=== PATIENT | female | born 1950 | race Caucasian/White ===

== ENCOUNTER 2018-02-05 12:41 | Inpatient (IN) | payer OTHER, BC ==
[2018-02-05] MEDS ORDERED: FENTANYL CITR 100 MCG/2 ML ONE (14:01)
[2018-02-05] MEDS ORDERED: ONDANSETRON 4 MG/2 ML VIAL ONE (14:01)
--- NOTE | 2018-02-05 14:05 | EKG ---
Test Date: 2018-02-05 Test Time: 13:01:05 Coil Former: BECKI MEASUREMENT RESULTS: Intervals: Rate: 129 [place]: QRSD: 84 QT: 268 QTc: 392 [place]: P: [place]: QRS: 94 T: 51 INTERPRETIVE STATEMENTS: Atrial fibrillation with rapid ventricular response with premature ventricular or aberrantly conducted complexes Rightward axis Low voltage QRS Cannot rule out Anterior infarct, age undetermined Abnormal ECG Compared to ECG 06/27/2011 17:02:08 Ventricular premature complex(es) now present Myocardial infarct finding now present Sinus rhythm no longer present Electronically Signed On 02-05-18 14:04:50 CDT by Rey Le
[2018-02-05] MEDS ORDERED: Ringers Lactate 1,000 ML IV ONE (14:46)
[2018-02-05 14:56] LABS: Potassium 4.3 mEq/L (3.6-5.0)
[2018-02-05 15:02] LABS: Albumin 3.8 g/dL (3.2-5.5); Bilirubin Direct 0.2 mg/dL (0-0.2); Bilirubin Total 0.5 mg/dL (0.3-1.2); Magnesium 2.1 mg/dL (1.8-2.5); Protein, Total 7.5 g/dL (6.0-8.3)
[2018-02-05 15:04] LABS: CKMB Creatine Kinase MB 1.3 ng/ml (0.3-4.0)
[2018-02-05 15:08] LABS: Protime INR 1.03
--- NOTE | 2018-02-05 15:25 | RAD REPORT ---
EXAM DESCRIPTION: Pat Single View02/05/2018 2:23 pm CLINICAL HISTORY: Chest pain COMPARISON: 2010 FINDINGS: The lungs appear clear of acute infiltrate. The heart is borderline enlarged IMPRESSION: No acute abnormalities displayed
[2018-02-05 15:35] LABS: Absolute Lymphocytes (CBC) 0.8 K/uL (0.7-4.9); Absolute Monocytes 0.6 K/uL (0.1-1.3); Absolute Neutrophil 10.1 K/uL (1.8-8.0); Basophils % 0.5 % (0-1.3); Eosinophils % 0.3 % (0-4.4); Hematocrit 45.2 % (36.0-45.0); Lymphocytes % 7.1 % (15.3-44.8); MCH 30.3 pg (27.0-35.0); MCV 90.4 fL (80-100); MPV 9.1 fL (7.6-11.3); Monocytes % 5.4 % (3.3-12.3)
--- NOTE | 2018-02-05 16:11 | ER ---
Nurse's Notes [facility] Name: Qi Morse Age: 67 yrs Sex: Female : 1950 Arrival Date: 02/05/2018 Time: 12:42 Bed 16 Private MD: Andriy Tapia Diagnosis: Other chest pain;Other abdominal pain Presentation: 02/05 12:55 Presenting complaint: Patient states: nausea, left shoulder pain, and epigastric pain aa5 that woke pt up around 3 am today. Pt also reports feeling tired. Transition of care: patient was not received from another setting of care. Onset of symptoms was February 05, 2018. Risk Assessment: Do you want to hurt yourself or someone else? Patient reports no desire to harm self or others. Initial Sepsis Screen: Does the patient meet any 2 criteria? No. Patient's initial sepsis screen is negative. Does the patient have a suspected source of infection? No. Patient's initial sepsis screen is negative. Care prior to arrival: None. 12:55 Method Of Arrival: Ambulatory aa5 12:55 Acuity: DIPTI 3 aa5 Historical: - Allergies: 12:57 Codeine (Upset stomach); aa5 - Home Meds: 12:57 levothyroxine oral [Active]; aa5 - PMHx: 12:57 Pancreatitis; aa5 - PSHx: 12:57 Cholecystectomy; Partial thyroidectomy; right hip replacement; aa5 - Immunization history:: Adult Immunizations up to date. - Social history:: Smoking status: Patient/guardian denies using tobacco. - Ebola Screening: : No symptoms or risks identified at this time. Screenin:00 Abuse screen: Denies threats or abuse. Denies injuries from another. Nutritional aj screening: No deficits noted. Tuberculosis screening: No symptoms or risk factors identified. Fall Risk None identified. Assessment: 13:00 General: Appears in no apparent distress. uncomfortable, Behavior is calm, cooperative, aj appropriate for age. Pain: Complains of pain in abdomen. Neuro: Level of Consciousness is awake, alert, obeys commands, Oriented to person, place, time, situation, Appropriate for age. Respiratory: Airway is patent Respiratory effort is even, unlabored, Respiratory pattern is regular, symmetrical. GI: Reports lower abdominal pain, upper abdominal pain. Derm: Skin is intact, is healthy with good turgor, Skin is pink, warm \T\ dry. normal. Vital Signs: 12:58 BP 144 / 96; Pulse 114; Resp 18 S; Temp 98.9(O); Pulse Ox 94% on R/A; Weight 149.69 kg aa5 (R); Height 5 ft. 9 in. (175.26 cm) (R); Pain 4/10; 13:00 BP 134 / 72; Pulse 93; Resp 19; Pulse Ox 99% on R/A; aj 14:20 BP 129 / 71; Pulse 89; Resp 19; Pulse Ox 96% on R/A; dh3 12:58 Body Mass Index 48.73 (149.69 kg, 175.26 cm) aa5 ED Course: 12:42 Patient arrived in ED. sb2 12:43 Andriy Tapia MD is Private Physician. sb2 12:56 Triage completed. aa5 12:56 Arm band placed on. aa5 13:00 EKG completed in triage. Results shown to MD. aa5 13:00 No provider procedures requiring assistance completed. Patient admitted, IV remains in aj place. intact. 13:09 Bo Clemens PA is PHCP. jmm 13:09 Iker Matt MD is Attending Physician. jmm 13:16 Hannah Denis, RN is Primary Nurse. aj 14:17 Radiology exam delayed due to lab results not completed at this time. (BUN/Creatinine). jj2 14:19 Missed attempt(s): 22 gauge in left antecubital area. Bleeding controlled, band aid dh3 applied, catheter tip intact. 14:21 X-ray completed. Portable x-ray completed in exam room. Patient tolerated procedure jb2 well. 14:21 XRAY Chest (1 view) In Process Unspecified. EDMS 14:45 Radiology exam delayed due to lab results not completed at this time. (BUN/Creatinine). jj2 14:45 Inserted saline lock: 22 gauge in left antecubital area, using aseptic technique. Blood aj collected. 15:29 EKG done, by neurology technician. reviewed by Bo CHASE Repeat EKG. at1 16:10 Tara Carlos MD is Hospitalizing Provider. jmm 17:55 Patient has correct armband on for positive identification. Report given to Rachel. aj Administered Medications: 14:41 Drug: fentaNYL (PF) 50 mcg Route: IVP; Site: left antecubital; aj 14:42 Drug: Zofran 4 mg Route: IVP; Site: left antecubital; aj 14:47 Drug: Lactated Ringers Solution 1000 ml Route: IV; Rate: 1 bolus; Site: left aj antecubital; Outcome: 16:10 Decision to Hospitalize by Provider. moose 17:58 Admitted to Med/surg accompanied by yessi, via wheelchair, Report called to Rachel voss 17:58 Condition: good 17:58 Instructed on the need for admit. 18:24 Patient left the ED. ss Signatures: Dispatcher [employer] Hannah Obando, RN RN Bo Valencia PA PA jmm Buechter, Jesse jb2 Jaramillo, Justin jj2 Calderon, Audri, RN RN aa5 Saima Maki RN RN Hannah benoit, b[place] cutter EKG Tat1 Safia Paul 3 Nevin Valente sb2
--- NOTE | 2018-02-05 16:11 | EDPHYS ---
Physician Documentation [facility] Name: Qi Morse Age: 67 yrs Sex: Female : 1950 Arrival Date: 02/05/2018 Time: 12:42 Bed 16 Private MD: Andriy Tapia ED Physician Iker Matt HPI: 02/05 13:54 This 67 yrs old Female presents to ER via Ambulatory with complaints of jmm Doesn't Feel Right, Pain All Over. 13:54 The patient presents with abdominal pain in the epigastric area. Onset: The jmm symptoms/episode began/occurred gradually, this am. The symptoms radiate to the left shoulder. Associated signs and symptoms: Pertinent positives: weakness. This is a 67 year old female with a hx of pancreatitis that presents to the ED with epigastric abdominal pain worsening this morning at approx 3 am. Also complains of generalized weakness and left shoulder pain for approx 1 week. . Historical: - Allergies: 12:57 Codeine (Upset stomach); aa5 - Home Meds: 12:57 levothyroxine oral [Active]; aa5 - PMHx: 12:57 Pancreatitis; aa5 - PSHx: 12:57 Cholecystectomy; Partial thyroidectomy; right hip replacement; aa5 - Immunization history:: Adult Immunizations up to date. - Social history:: Smoking status: Patient/guardian denies using tobacco. - Ebola Screening: : No symptoms or risks identified at this time. ROS: 13:54 ENT: Negative for injury, pain, and discharge, Neck: Negative for injury, pain, and jmm swelling. 13:54 Respiratory: Negative for shortness of breath, cough, wheezing, and pleuritic chest pain. 13:54 Back: Negative for injury and pain, : Negative for injury, bleeding, discharge, and swelling, Skin: Negative for injury, rash, and discoloration, Neuro: Negative for headache, weakness, numbness, tingling, and seizure. 13:54 Constitutional: Positive for malaise. 13:54 Cardiovascular: Positive for 13:54 Abdomen/GI: Positive for abdominal pain, nausea. 13:54 Neuro: Positive for weakness. 13:54 All other systems are negative. Exam: 13:54 Head/Face: atraumatic. Chest/axilla: Normal chest wall appearance and motion. jmm Nontender with no deformity. No lesions are appreciated. Cardiovascular: Regular rate and rhythm. No gallops, murmurs, or rubs. Full/Equal distal pulses. Respiratory: Lungs have equal breath sounds bilaterally, clear to auscultation. No rales, rhonchi or wheezes noted. No increased work of breathing, no retractions or nasal flaring. 13:54 Constitutional: The patient appears in no acute distress, alert, awake. 13:54 Abdomen/GI: Inspection: obese Bowel sounds: normal, Palpation: abdomen is soft and non-tender, mild abdominal tenderness, in the umbilical area, right upper quadrant and left upper quadrant. 13:54 Musculoskeletal/extremity: ROM: intact in all extremities. 13:54 Skin: Appearance: Color: normal in color. 13:54 Neuro: Orientation: is normal, Mentation: is normal, Memory: is normal. 13:54 Psych: Behavior/mood is pleasant, cooperative. Vital Signs: 12:58 BP 144 / 96; Pulse 114; Resp 18 S; Temp 98.9(O); Pulse Ox 94% on R/A; Weight 149.69 kg aa5 (R); Height 5 ft. 9 in. (175.26 cm) (R); Pain 4/10; 13:00 BP 134 / 72; Pulse 93; Resp 19; Pulse Ox 99% on R/A; aj 14:20 BP 129 / 71; Pulse 89; Resp 19; Pulse Ox 96% on R/A; dh3 12:58 Body Mass Index 48.73 (149.69 kg, 175.26 cm) aa5 MDM: 13:51 Patient medically screened. [facility] 13:54 Data reviewed: vital signs, nurses notes. [facility] 16:09 Data reviewed: lab test result(s), EKG, radiologic studies, plain films. ED course: I moose discussed the patient with RJ Carey whom accepted the patient to Dr. Carlos's service. . 17:09 Data reviewed: radiologic studies, CT scan. Counseling: I had a detailed discussion moose with the patient and/or guardian regarding: the historical points, exam findings, and any diagnostic results supporting the discharge/admit diagnosis, lab results, radiology results, the need for further work-up and treatment in the hospital. ED course: I discussed the patient with RJ Carey whom accepted to the patient's to Dr. Carlos's service. . 02/05 13:52 Order name: Basic Metabolic Panel; Complete Time: 15:07 [facility] 02/05 13:52 Order name: BNP; Complete Time: 15: [facility] 02/05 13:52 Order name: CBC with Diff; Complete Time: 15:51 [facility] 02/05 13:52 Order name: Ckmb; Complete Time: 15: [facility] 02/05 13:52 Order name: CPK; Complete Time: 15:07 [facility] 02/05 13:52 Order name: LFT's; Complete Time: 15: [facility] 02/05 13:52 Order name: Magnesium; Complete Time: 15: [facility] 02/05 13:52 Order name: PT-INR; Complete Time: 15:21 [facility] 02/05 13:52 Order name: Ptt, Activated; Complete Time: 15:21 [facility] 02/05 13:52 Order name: Troponin (emerg Dept Use Only); Complete Time: 15: [facility] 02/05 13:52 Order name: Lipase; Complete Time: 15: [facility] 02/05 16:23 Order name: Basic Metabolic Panel [facility] 02/05 16:23 Order name: Basic Metabolic Panel [facility] 02/05 16:23 Order name: CBC with Automated Diff [facility] 02/05 13:52 Order name: XRAY Chest (1 view); Complete Time: 15:51 [facility] 02/05 13:52 Order name: EKG; Complete Time: 13:53 [facility] 02/05 13:52 Order name: CT Abd/Pelvis - W/Contrast [facility] 02/05 15:19 Order name: Chest For PE Angio CT [facility] 02/05 15:28 Order name: EKG Electrocardiogram [facility] 02/05 16:23 Order name: EKG Electrocardiogram [facility] 02/05 16:23 Order name: EKG Electrocardiogram [facility] 02/05 16:23 Order name: CBC with Automated Diff [facility] 02/05 16:23 Order name: Troponin I [facility] 02/05 16:23 Order name: Troponin I [facility] 02/05 16:23 Order name: Troponin I [facility] 02/05 16:36 Order name: CT; Complete Time: 16:41 [facility] 02/05 16:41 Order name: CT; Complete Time: 16:42 [facility] 02/05 13:52 Order name: Cardiac monitoring [facility] 02/05 13:52 Order name: EKG - Nurse/Tech [facility] 02/05 13:52 Order name: IV Saline Lock [facility] 02/05 13:52 Order name: Labs collected and sent [facility] 02/05 13:52 Order name: O2 Per Protocol [facility] 02/05 13:52 Order name: O2 Sat Monitoring [facility] 02/05 13:52 Order name: Urine Dipstick-Ancillary (obtain specimen) [facility] 02/05 15:13 Order name: EKG - Nurse/Tech [facility] 02/05 16:23 Order name: EKG Electrocardiogram [facility] 02/05 16:23 Order name: EKG Electrocardiogram [facility] Administered Medications: 14:41 Drug: fentaNYL (PF) 50 mcg Route: IVP; Site: left antecubital; aj 14:42 Drug: Zofran 4 mg Route: IVP; Site: left antecubital; aj 14:47 Drug: Lactated Ringers Solution 1000 ml Route: IV; Rate: 1 bolus; Site: left aj antecubital; Disposition: 02/05/18 16:10 Hospitalization ordered by Tara Carlos for Observation. Preliminary diagnosis are Other chest pain, Other abdominal pain. - Bed requested for Telemetry/MedSurg (observation). - Status is Observation. ss - Condition is Stable. - Problem is new. - Symptoms have improved. UTI on Admission? No Addendum: 02/09/2018 07:05 Co-signature as Attending Physician, Iker Matt MD I agree with the assessment and k dr plan of care. Signatures: Dispatcher [employer] [facility] Hannah Denis RN RN aj Rittger, Kevin, MD MD kdr Mickail, Joel, PA PA Kylah Arechiga RN RN aa5 Saima Maki RN RN ss Idalmis Maradiaga RN RN df Corrections: (The following items were deleted from the chart) 02/05 17:08 16:10 Hospitalization Ordered by Tara Carlos MD for Observation. Preliminary df diagnosis is Other chest pain; Other abdominal pain. Bed requested for Telemetry/MedSurg (observation). Status is Observation. Condition is Stable. Problem is new. Symptoms have improved. UTI on Admission? No. [facility] 18:24 17:08 02/05/2018 16:10 Hospitalization Ordered by Tara Carlos MD for Observation. ss Preliminary diagnosis is Other chest pain; Other abdominal pain. Bed requested for Telemetry/MedSurg (observation). Status is Observation. Condition is Stable. Problem is new. Symptoms have improved. UTI on Admission? No. df
[2018-02-05] MEDS ORDERED: ONDANSETRON 4 MG/2 ML VIAL IV PRN (16:21)
--- NOTE | 2018-02-05 16:35 | RAD REPORT ---
EXAM DESCRIPTION: CT - Chest For Pe Angio - 02/05/2018 4:25 pm CLINICAL HISTORY: Chest pain. CHEST PAIN COMPARISON: CTANGIO CHEST FOR PE dated 06/25/2008 TECHNIQUE: CT angiogram of the pulmonary arteries was performed with MIP. All CT scans are performed using dose optimization technique as appropriate and may include automated exposure control or mA/KV adjustment according to patient size. FINDINGS: No evidence of pulmonary thromboembolism. No acute aortic finding demonstrated. Mild cardiomegaly is seen. Linear atelectasis is present in the right lung base. No focal infiltrate is seen. No significant pericardial or pleural fluid. No concerning bony finding. Mildly prominent right-sided pericardial lymph nodes are seen the largest measuring 16 mm. IMPRESSION: No evidence of pulmonary thromboembolism. Linear atelectasis is seen in the right lung base.
--- NOTE | 2018-02-05 16:41 | RAD REPORT ---
EXAM DESCRIPTION: CTAbdomen Pelvis W Contrast - 02/05/2018 4:25 pm CLINICAL HISTORY: Abdominal pain. abdominal pain, IV only COMPARISON: CT ABD PELVIS W CONTRAST dated 09/02/2008 TECHNIQUE: Biphasic CT imaging of the abdomen and pelvis was performed with 100 ml non-ionic IV cont rast. All CT scans are performed using dose optimization technique as appropriate and may include automated exposure control or mA/KV adjustment according to patient size. FINDINGS: Linear subsegmental atelectasis is present in the right lung base.Mildly prominent lymph n odes seen in the pericardial space, largest measuring 15 mm. Small hiatal hernia noted. Pneumobilia is seen in the liver with cholecystectomy clips present. The spleen, adrenal glands and k idneys are within normal limits. Slightly edematous appearance to the pancreatic head is present. No bowel obstruction, free air, free fluid or abscess. Focal fat containing ventral hernias are seen. The appendix is not identified as a discrete structure, however, no secondary findings of appendicit is are identified. 4 cm left adnexal cyst is noted. No evidence of significant lymphadenopathy. Mild aortic atherosclerosis. Right hip arthroplasty present. IMPRESSION: Subtle fullness in the pancreatic head region could indicate in early pancreatitis. Advi se correlation with amylase/ lipase levels. Cholecystectomy with moderate pneumobilia. 4 cm left adnexal cyst, probably related to the left ovary. Followup nonemergent pelvic sonography ma y be considered in 4-6 weeks.
[2018-02-05] MEDS ORDERED: NA CHLORIDE 0.9% 1,000 ML ONE (18:47)
[2018-02-05] MEDS: ACETAMINOPHEN 500 MG TAB PO PRN (18:53)
[2018-02-05] MEDS: NA CHLORIDE 0.9% 1,000 ML IV SCH ×2 (18:58→21:45)
[2018-02-05] MEDS ORDERED: DIAZEPAM 10 MG/2 ML INJ SYRINGE IV ONE (19:00)
[2018-02-05] MEDS ORDERED: ENOXAPARIN 40 MG/0.4 ML SQ SCH (20:00)
[2018-02-05] MEDS ORDERED: ACETAMINOPHEN 500 MG TAB PO ONE (21:38)
--- NOTE | 2018-02-05 21:56 | P.HP ---
Certification for Inpatient Patient admitted to: Observation With expected LOS: <2 Midnights Patient will require the following post-hospital care: None Practitioner: I am a practitioner with admitting privileges, knowledge of patient current condition, hospital course, and medical plan of care. Services: Services provided to patient in accordance with Admission requirements found in Title 42 Section 412.3 of the Code of Federal Regulations Patient History Date of Service: 02/05/18 Primary Care Provider: Willie Reason for admission: abdominal pain, mild pancreatitis History of Present Illness: Pt began having abdominal spasms on Thursday. Today she awoke with malaise, fatigue, and chills. Tried to make it through work and had to come to ED for severity of upper abdominal pain, chills, and nausea Allergies codeine Allergy (Verified 02/05/18 17:02) Hiv Home medications list reviewed: Yes - Past Medical/Surgical History Has patient received pneumonia vaccine in the past: Yes Diabetic: No -: pancreatitis -: hypothyroidism -: back pain -: right hip surgery -: Cholecystectomy -: hepaticojejunal anastomosis Psychosocial/ Personal History: Lives at home with her . Has children. Is the DON [facility] - Family History Family History: Reviewed- Non-Contributory - Social History Smoking Status: Never smoker Alcohol use: No CD- Drugs: No Place of Residence: Home Review of Systems General: Chills, Malaise Eyes: Unremarkable ENT: Unremarkable Respiratory: Unremarkable Cardiovascular: Palpitations Gastrointestinal: Nausea, Abdominal Pain Genitourinary: Unremarkable Musculoskeletal: Unremarkable Integumentary: Unremarkable Neurological: Unremarkable Lymphatics: Unremarkable Physical Examination - Vital Signs Temperature: 100.6 F Blood Pressure: 107/53 Pulse: 78 Respirations: 20 Pulse Ox (%): 91 - Studies Laboratory Data (last 24 hrs) 02/05/18 14:30: PT 12.2, INR 1.03, APTT 24.9 02/05/18 14:30: WBC 11.6 H, Hgb 15.1 H, Hct 45.2 H, Plt Count 316 02/05/18 14:30: B-Natriuretic Peptide 106 H 02/05/18 14:30: Sodium 137, Potassium 4.3, BUN 15, Creatinine 1.08 H, Glucose 121 H, Magnesium 2.1, Total Bilirubin 0.5, AST 88 H, ALT 59, Alkaline Phosphatase 101, Lipase 32 Assessment and Plan - Problems (Diagnosis) (1) Pancreatitis Current Visit: Yes Status: Acute Plan: NPO except for ice chips, IVF, and pain medications Qualifiers: Chronicity: acute (2) Abdominal pain Current Visit: Yes Status: Acute Plan: Pt described terrible spasms. Will give iv Valium as antispasmodic and re-eval Qualifiers: Abdominal location: right upper quadrant Qualified Code(s): R10.11 - Right upper quadrant pain - Advance Directives Does patient have a Living Will: No Does patient have a Durable POA for Healthcare: No
[2018-02-05 22:10] VITALS: BMI 56.5
[2018-02-06] MEDS: ACETAMINOPHEN 500 MG TAB PO PRN ×2 (02:36→14:12)
--- NOTE | 2018-02-06 06:16 | EKG ---
Test Date: 2018-02-05 Test Time: 15:22:57 Equipment Scheduler: AG/Jaison MEASUREMENT RESULTS: Intervals: Rate: 94 DC: 198 QRSD: 86 QT: 350 QTc: 437 [place]: P: 58 DC: 198 QRS: 74 T: 73 INTERPRETIVE STATEMENTS: Sinus rhythm with premature supraventricular complexes Possible Left atrial enlargement Low voltage QRS Cannot rule out Anterior infarct, age undetermined Abnormal ECG Compared to ECG 02/05/2018 13:01:05 Atrial premature complex(es) now present Atrial fibrillation no longer present Ventricular premature complex(es) no longer present Aberrant conduction of supraventricular beat(s) no longer present Right-axis deviation no longer present Myocardial infarct finding still present Electronically Signed On 02-06-18 06:15:32 CDT by Rey Le
[2018-02-06 06:33] LABS: Absolute Lymphocytes (CBC) 0.9 K/uL (0.7-4.9); Absolute Monocytes 0.5 K/uL (0.1-1.3); Basophils % 0.2 % (0-1.3); Eosinophils % 0.3 % (0-4.4); Hematocrit 39.4 % (36.0-45.0); Lymphocytes % 10.3 % (15.3-44.8); MCH 30.9 pg (27.0-35.0); MCV 90.4 fL (80-100); MPV 8.7 fL (7.6-11.3); Monocytes % 5.9 % (3.3-12.3); RBC Red Blood Cell Count 4.36 M/uL (3.86-4.86)
[2018-02-06 07:07] LABS: Potassium 3.7 mEq/L (3.6-5.0)
[2018-02-06] MEDS ORDERED: SOTALOL HCL 80 MG TAB PO ONE (07:52)
[2018-02-06] MEDS: APIXABAN 5 MG TABLET PO SCH ×2 (08:46→20:41)
[2018-02-06] MEDS ORDERED: PNEUMOCOCCAL VACCINE 0.5 ML IMVAC ONE (09:00)
[2018-02-06] MEDS ORDERED: ASPIRIN EC 81 MG TAB PO SCH (09:00)
--- NOTE | 2018-02-06 12:18 | P.PN ---
Subjective Date of Service: 02/06/18 Primary Care Provider: Willie Pt seen and examined at bedside with RN. Currently No complains to offer. Case DW with Cardiology doing well overall. Over night had an episode of Afib, was placed on betapace and converted back to Sinus Rhythm Review of Systems General: As per HPI Physical Examination - Vital Signs Temperature: 98.3 F Blood Pressure: 119/62 Pulse: 68 Respirations: 18 Pulse Ox (%): 97 - Physical Exam General: Alert, In no apparent distress HEENT: Atraumatic, PERRLA, EOMI Neck: Supple, JVD not distended Respiratory: Clear to auscultation bilaterally, Normal air movement Cardiovascular: Regular rate/rhythm, Normal S1 S2 Gastrointestinal: Normal bowel sounds, No tenderness Musculoskeletal: No tenderness Integumentary: No rashes Neurological: Normal speech, Normal tone, Normal affect Lymphatics: No axilla or inguinal lymphadenopathy - Studies Laboratory Data (last 24 hrs) 02/05/18 14:30: PT 12.2, INR 1.03, APTT 24.9 02/05/18 14:30: WBC 11.6 H, Hgb 15.1 H, Hct 45.2 H, Plt Count 316 02/05/18 14:30: B-Natriuretic Peptide 106 H 02/05/18 14:30: Sodium 137, Potassium 4.3, BUN 15, Creatinine 1.08 H, Glucose 121 H, Magnesium 2.1, Total Bilirubin 0.5, AST 88 H, ALT 59, Alkaline Phosphatase 101, Lipase 32 Medications List Reviewed: Yes Assessment & Plan - Problems (Diagnosis) (1) Afib Current Visit: Yes Status: Acute Plan: New onset Afib -Started on Eliquis and Betapace at this time -ECHO pending -Cardiology consulted Qualifiers: Atrial fibrillation type: unspecified Qualified Code(s): I48.91 - Unspecified atrial fibrillation (2) Abdominal pain Current Visit: Yes Status: Resolved Plan: RUQ pain -H/O Heptoduodenostomy. -Lipase WNL, CT with Inflamation on the pancreatic Head. Most likely chronic changes from the surgery. pancreatitis ruleout. -Advance to [facility] for now Qualifiers: Abdominal location: right upper quadrant Qualified Code(s): R10.11 - Right upper quadrant pain (3) Morbid obesity Current Visit: Yes Status: Chronic Discharge Plan: Home Plan to discharge in: 24 Hours - Code Status/Comfort Care Code Status Assessed: Yes Critical Care: No
--- NOTE | 2018-02-06 12:51 | CON ---
Chief Complaint: Heart racing. History Of Present Illness: Ms. Morse has not had AFib before, but she has been aware of her heart i s beating up and slowing down more than it should. It happened yesterday and she felt particularly b ad. There was abdominal pain, shortness of breath, fatigue, general feeling of well-being that is re solved now. She was in AFib when she came to the hospital. She is now in sinus rhythm with frequent premature atrial complexes. The patient has a history of pancreatitis and gallstones and had a chol ecystectomy and choledochal jejunostomy. She has underlying hypertension that seems to be under good control without medications. She has hypothyroidism and takes 125 mcg of levothyroxine daily. TSH has not been checked yet. She does not have diabetes. No history of heart disease. No stroke, myoc ardial infarction, vascular disease. She also has morbid obesity. She is allergic to codeine. Social History: She uses no tobacco. Rare alcohol. No illegal drugs. Physical Examination: Vital signs: 5 feet 6 inches, 350 pounds. Body mass index 56. HEENT: Normal. Lungs: Clear. Heart: Regular. There are occasional prematures. The EKG on telemetry would indicate sinus and frequent PACs. Impression: The patient has paroxysmal atrial fibrillation. She should be on an anticoagulant, then she should be on an antiarrhythmic drug to try and keep her in sinus rhythm as much as possible. We will start Betapace and Eliquis today. Tomorrow, we will see if she is stable to be discharged and as an outpatient, she should probably do a stress test and echocardiogram. Those will be done on the weekend of course. BOB Voice ID: [id number] Report ID: [id number]
[2018-02-06] MEDS: SOTALOL HCL 80 MG TAB PO SCH (18:15)
[2018-02-07] MEDS: ACETAMINOPHEN 500 MG TAB PO PRN ×2 (02:05→16:05)
[2018-02-07] MEDS: SOTALOL HCL 80 MG TAB PO SCH ×2 (06:04→18:10)
[2018-02-07] MEDS: LEVOTHYROXINE SOD 0.125 MG TAB PO SCH (06:04)
[2018-02-07] MEDS: APIXABAN 5 MG TABLET PO SCH ×2 (07:59→21:32)
--- NOTE | 2018-02-07 09:10 | EKG ---
Test Date: 2018-02-07 Test Time: 08:21:59 Biology Tutor: CAMERON MEASUREMENT RESULTS: Intervals: Rate: 103 [place]: QRSD: 98 QT: 296 QTc: 387 [place]: P: IN: QRS: 92 T: 27 INTERPRETIVE STATEMENTS: Atrial flutter with variable AV block Rightward axis Low voltage QRS Nonspecific T wave abnormality Abnormal ECG Compared to ECG 02/05/2018 15:22:57 Right-axis deviation now present T-wave abnormality now present Sinus rhythm no longer present Atrial premature complex(es) no longer present Myocardial infarct finding no longer present Electronically Signed On 02-07-18 09:09:52 CDT by Rey Le
--- NOTE | 2018-02-07 12:11 | PN ---
Mrs. Morse is in sinus rhythm this morning. She has had quite a bit of AFib. Her vital signs will allow us to try a higher dose of sotalol, allowing her to be discharged. I recommend we increase it to 120 b.i.d. and wait until tomorrow before we see if she is adequately controlled. RAPHAEL/DIONICIO Voice ID: [id number] Report ID: [id number] MTDD
--- NOTE | 2018-02-07 12:11 | P.PN ---
Subjective Date of Service: 02/07/18 Primary Care Provider: Willie Chief Complaint: abdominal pain, mild pancreatitis Pt seen and examined at bedside with RN. Currently No complains to offer. Case DW with Cardiology doing well overall. has been having Intermittent PVC and Afib overnight. Dose for Betapace increased. Review of Systems General: As per HPI Physical Examination - Vital Signs Temperature: 97.8 F Blood Pressure: 131/84 Pulse: 90 Respirations: 20 Pulse Ox (%): 91 - Physical Exam General: Alert, In no apparent distress HEENT: Atraumatic, PERRLA, EOMI Neck: Supple, JVD not distended Respiratory: Clear to auscultation bilaterally, Normal air movement Cardiovascular: Normal S1 S2, Irregular heart rate/rhythm Gastrointestinal: Normal bowel sounds, No tenderness Musculoskeletal: No tenderness Integumentary: No rashes Neurological: Normal speech, Normal tone, Normal affect Lymphatics: No axilla or inguinal lymphadenopathy - Studies Medications List Reviewed: Yes Assessment & Plan - Problems (Diagnosis) (1) Afib Current Visit: Yes Status: Acute Plan: New onset Afib -On Betapace. Increased now due to presistent Afib -Eliquis for anticoagulation -ECHO pending -Cardiology consulted. Reccs appreciated Qualifiers: Atrial fibrillation type: persistent Qualified Code(s): I48.1 - Persistent atrial fibrillation (2) Abdominal pain Current Visit: Yes Status: Resolved Plan: RUQ pain -H/O Heptoduodenostomy. -Lipase WNL, CT with Inflamation on the pancreatic Head. Most likely chronic changes from the surgery. pancreatitis ruleout. -Advance to IND for now Qualifiers: Abdominal location: right upper quadrant Qualified Code(s): R10.11 - Right upper quadrant pain (3) Morbid obesity Current Visit: Yes Status: Chronic Discharge Plan: Home Plan to discharge in: 24 Hours - Code Status/Comfort Care Code Status Assessed: Yes Critical Care: No
[2018-02-08] MEDS: SOTALOL HCL 80 MG TAB PO SCH (06:28)
[2018-02-08] MEDS: LEVOTHYROXINE SOD 0.125 MG TAB PO SCH (06:28)
[2018-02-08] MEDS: APIXABAN 5 MG TABLET PO SCH (10:09)
[2018-02-08 11:53] VITALS: BP 99/56; TEMP 97
--- NOTE | 2018-02-08 12:16 | EKG ---
Test Date: 2018-02-08 Test Time: 02:10:44 Fuel Oil Truck Driver: RT-O MEASUREMENT RESULTS: Intervals: Rate: 80 HI: QRSD: 98 QT: 380 QTc: 438 [place]: P: HI: QRS: 88 T: 33 INTERPRETIVE STATEMENTS: Atrial fibrillation Low voltage QRS Abnormal ECG Compared to ECG 02/07/2018 08:21:59 Atrial flutter no longer present Right-axis deviation no longer present T-wave abnormality no longer present Electronically Signed On 02-08-18 12:15:30 CDT by Rey Le
--- NOTE | 2018-02-08 15:03 | PN ---
Mrs. Morse is in sinus rhythm now. She has been 4-5 hours every day in AFib, not very symptomatic wi th it. She is anticoagulated. I am going to recommend we allow Mrs. Morse to go home on Betapace 12 0 mg twice a day and Eliquis 5 mg twice a day and make an appointment to see Dr. Ha or Dr. Blue i n the future to consider an AFib ablation. I think one of the main factors exacerbating her AFib seamus ing it so difficult to control is sleep apnea. Sleep apnea has probably not been tested for and I wi ll recommend that the patient get an outpatient sleep study and outpatient visit with Dr. Ha. RAPHAEL/DIONICIO Voice ID: [id number] Report ID: [id number]
[2018-02-08 16:05] VITALS: O2SAT 94
--- NOTE | 2018-02-10 09:38 | PN ---
Date of Progress Note: 02/08/2018 Subjective: The patient feels much better today. Her AFib is under control with slow rate. Cardiol ogy to be discharged to follow up and continue her on her new medication of anticoagulatio n and Betapace complex. She had bypass procedure, post cholecystectomy approxi mately 14 years ago, and she states she is doing fine until last couple of months when she has had sh ort episodes of right upper quadrant pain; however, the nothing compared to this episode. She had be en diagnosed with chronic pancreatitis in the past. biliary duct system. This episode tariq s now cleared; however, if evaluation probably necessary and we will refer her to the surg eons in [place]. At this time, she is basically asymptomatic. She was discharged in good condition. Follow up with myself and Cardiology. Final Diagnoses: 1.Right upper quadrant pain, probably biliary colic. 2.Atrial fibrillation. 3.Morbid obesity. HR/MODL Voice ID: [id number] Report ID: [id number]
--- NOTE | 2018-02-11 10:50 | EKG ---
Test Date: 2018-02-06 Test Time: 05:00:08 Subcontract Manager: RT-Edilma MEASUREMENT RESULTS: Intervals: Rate: 111 [place]: QRSD: 92 QT: 294 QTc: 399 [place]: P: OK: QRS: 66 T: 45 INTERPRETIVE STATEMENTS: Atrial fibrillation with rapid ventricular response Low voltage QRS Abnormal ECG Compared to ECG 02/05/2018 15:22:57 Sinus rhythm no longer present Atrial premature complex(es) no longer present Myocardial infarct finding no longer present Electronically Signed On 02-11-18 10:49:37 CDT by Colin Mejia
== END 2018-02-08 15:20 | disposition home or self-care (01) | DRG 309 ==
LOC: ER 12:41 → ERHOLD 16:10 → 4TH 17:34 → OBSVTOIN 02-08 07:33
PROVIDERS: ADMIT Family Medicine; ATTEND Family Medicine
DX: I48.0 Paroxysmal atrial fibrillation (principal); Z68.42 Body mass index [BMI] 45.0-49.9, adult; K80.50 Calculus of bile duct without cholangitis or cholecystitis without obstruction; E66.01 Morbid (severe) obesity due to excess calories; I10 Essential (primary) hypertension; I49.1 Atrial premature depolarization; E03.9 Hypothyroidism, unspecified; Z88.5 Allergy status to narcotic agent
CPT/HCPCS: 36415; 71045; 71275; 74177; 80048; 80076; 82550; 82553; 83690; 83735; 83880; 84443; 84484; 85025; 85610; 85730; 90670; 93005; 96374; 96375; 99285; G0009; G0378; J1650; J2405; J3010; J3360; J7030; Q9967

== ENCOUNTER 2018-09-21 02:43 | Inpatient (IN) | payer OTHER, BC ==
[2018-09-21] MEDS ORDERED: NITROGLYCERIN 0.4 MG/TAB SL ONE (03:19)
[2018-09-21] MEDS ORDERED: ONDANSETRON 4 MG/2 ML VIAL ONE (03:19)
[2018-09-21 03:32] LABS: Absolute Lymphocytes (CBC) 1.5 K/uL (0.7-4.9); Absolute Monocytes 0.7 K/uL (0.1-1.3); Absolute Neutrophil 4.1 K/uL (1.8-8.0); Lymphocytes % 22.8 % (15.3-44.8); MPV 9.8 fL (7.6-11.3); Monocytes % 10.8 % (3.3-12.3); RBC Red Blood Cell Count 4.85 M/uL (3.86-4.86)
[2018-09-21 03:36] LABS: Protime INR 1.06
[2018-09-21 03:49] LABS: ALT/SGPT 19 U/L (12-78); AST/SGOT 20 U/L (15-37); Albumin 3.4 g/dL (3.4-5.0); Alkaline Phosphatase 78 U/L (45-117); BUN Blood Urea Nitrogen 22 mg/dL (7-18); Bicarbonate 24 mmol/L (21-32); Bilirubin Direct 0.1 mg/dL (0-0.2); Bilirubin Total 0.3 mg/dL (0.2-1.0); Glucose Level 103 mg/dL (74-106); Magnesium 2.2 mg/dL (1.8-2.4); NT PRO-BNP 80 pg/mL (<125); Potassium 3.9 mmol/L (3.5-5.1); Protein, Total 7.3 g/dL (6.4-8.2); Sodium Level 142 mmol/L (136-145); Troponin (Emerg Dept Use Only) < 0.02 ng/mL (0.0-0.045)
[2018-09-21] MEDS ORDERED: ONDANSETRON 4 MG (ODT) TAB ONE (03:49)
--- NOTE | 2018-09-21 04:21 | EDPHYS ---
Physician Documentation [facility] Name: Qi Morse Age: 68 yrs Sex: Female : 1950 Arrival Date: 09/21/2018 Time: 02:44 Bed 19 Private MD: Andriy Tapia ED Physician Reginald Loyd HPI: 09/21 04:23 This 68 yrs old Female presents to ER via Wheelchair with complaints of Chest tw4 Pain > 30 y/o, Arm Pain, Nausea. 04:23 The patient or guardian reports chest pain that is located primarily in the substernal tw4 area. Onset: today. The pain does not radiate. Associated signs and symptoms: The patient has no apparent associated signs or symptoms. The chest pain is described as a heaviness. Duration: The patient or guardian reports a single episode, that is still ongoing. Modifying factors: The symptoms are alleviated by nothing. the symptoms are aggravated by nothing. Severity of pain: At its worst the pain was severe in the emergency department the pain is unchanged. Historical: - Allergies: 03:00 Demerol; ak1 03:00 Codeine (Upset stomach); ak1 - Home Meds: 03:00 levothyroxine oral [Active]; sotalol Oral [Active]; Eliquis oral oral [Active]; ak1 - PMHx: 03:00 Pancreatitis; Atrial Fib; ak1 - PSHx: 03:00 Partial thyroidectomy; right hip replacement; Cholecystectomy; Hysterectomy; ak1 hepaticojejunostomy; - Immunization history:: Adult Immunizations unknown. - Social history:: Smoking status: Patient/guardian denies using tobacco. - Ebola Screening: : No symptoms or risks identified at this time. ROS: 04:23 Constitutional: Negative for fever, chills, and weight loss, Eyes: Negative for injury, tw4 pain, redness, and discharge, Respiratory: Negative for shortness of breath, cough, wheezing, and pleuritic chest pain, Abdomen/GI: Negative for abdominal pain, nausea, vomiting, diarrhea, and constipation, Back: Negative for injury and pain, MS/Extremity: Negative for injury and deformity, Skin: Negative for injury, rash, and discoloration, Neuro: Negative for headache, weakness, numbness, tingling, and seizure. 04:23 Cardiovascular: Positive for chest pain, Negative for edema, orthopnea, palpitations. Exam: 04:23 Constitutional: This is a well developed, well nourished patient who is awake, alert, tw4 and in no acute distress. Head/Face: Normocephalic, atraumatic. Cardiovascular: Regular rate and rhythm with a normal S1 and S2. No gallops, murmurs, or rubs. Normal PMI, no JVD. No pulse deficits. Respiratory: Lungs have equal breath sounds bilaterally, clear to auscultation and percussion. No rales, rhonchi or wheezes noted. No increased work of breathing, no retractions or nasal flaring. Abdomen/GI: Soft, non-tender, with normal bowel sounds. No distension or tympany. No guarding or rebound. No evidence of tenderness throughout. Back: No spinal tenderness. No costovertebral tenderness. Full range of motion. MS/ Extremity: Pulses equal, no cyanosis. Neurovascular intact. Full, normal range of motion. Neuro: Awake and alert, GCS 15, oriented to person, place, time, and situation. Cranial nerves II-XII grossly intact. Motor strength 5/5 in all extremities. Sensory grossly intact. Cerebellar exam normal. Normal gait. Vital Signs: 02:56 BP 157 / 106; Pulse 57; Resp 18; Pulse Ox 97% on R/A; Weight 136.08 kg (R); Height 5 ak1 ft. 6 in. (167.64 cm) (R); Pain 6/10; 03:41 Temp 97.9(O); jd3 03:55 BP 110 / 64; Pulse 52; Resp 17 S; Pulse Ox 98% on R/A; jd3 04:53 BP 108 / 60; Pulse 57; Resp 19 S; Pulse Ox 98% on R/A; jd3 02:56 Body Mass Index 48.42 (136.08 kg, 167.64 cm) ak1 MDM: 02:50 Patient medically screened. tw4 04:23 Data reviewed: vital signs, nurses notes. Data interpreted: email production specialist: rhythm is tw4 normal sinus rhythm, Pulse oximetry: Interpretation: normal. Counseling: I had a detailed discussion with the patient and/or guardian regarding: the historical points, exam findings, and any diagnostic results supporting the discharge/admit diagnosis, lab results, radiology results. Medication response: Nitro x 3 relieved pain. Response to treatment: the patient's symptoms have resolved after treatment, the patient's pain is gone, and as a result, I will admit patient. Physician consultation: Andriy Tapia MD regarding admission, patient's condition, need to evaluate the patient as soon as possible, and will see patient in inpatient room. Admission orders: after a detailed discussion of the patient's condition and case, the admit orders are written by me. 04:26 Differential diagnosis: abnormal EKG, acute pericarditis, Cholelithiasis costochondritis, herpes zoster, myocarditis, peptic ulcer disease, pericarditis, pulmonary embolus, stable angina, thoracic aortic disection. TIFFANY Risk Score: 1 - patient's age is greater or equal to 65 years, 1- Known CAD, 1 - ASA use in past 7 days, 1 - Recent [<24hrs] Severe Angina, 1 - Elevated Cardiac Markers, TOTAL SCORE = 5. 09/21 03:07 Order name: Basic Metabolic Panel; Complete Time: 04:06 09/21 04:07 Interpretation: Normal except: CL 108; BUN 22; GFR 64. 09/21 03:07 Order name: CBC with Diff; Complete Time: 04:07 09/21 04:07 Interpretation: Within normal limits. 09/21 03:07 Order name: LFT's; Complete Time: 04:07 09/21 04:07 Interpretation: Normal except: GLOB 3.9; A/G 0.9. 09/21 03:07 Order name: Magnesium; Complete Time: 04:07 09/21 04:07 Interpretation: Within normal limits: MG 2.2. 09/21 03:07 Order name: NT PRO-BNP; Complete Time: 04:07 09/21 04:07 Interpretation: Within normal limits: NT PRO-BNP 80. 09/21 03:07 Order name: PT-INR; Complete Time: 04:07 09/21 04:07 Interpretation: Within normal limits: PT 12.5. 09/21 03:07 Order name: Troponin (emerg Dept Use Only); Complete Time: 04:07 09/21 04:07 Interpretation: Within normal limits: TROPED < 0.02. 09/21 03:07 Order name: XRAY Chest (1 view) tw4 09/21 04:40 Order name: Basic Metabolic Panel EDMS 09/21 04:40 Order name: Basic Metabolic Panel EDMS 09/21 04:40 Order name: CBC with Automated Diff EDMS 09/21 04:40 Order name: CBC with Automated Diff EDMS 09/21 04:40 Order name: Troponin I EDMS 09/21 04:40 Order name: Troponin I EDMS 09/21 03:07 Order name: EKG; Complete Time: 03:08 09/21 03:07 Order name: Cardiac monitoring; Complete Time: 03:27 09/21 03:07 Order name: EKG - Nurse/Tech; Complete Time: 03:27 09/21 03:07 Order name: IV Saline Lock; Complete Time: 04:14 09/21 03:07 Order name: Labs collected and sent; Complete Time: 03:27 09/21 03:07 Order name: O2 Per Protocol; Complete Time: 03:27 09/21 03:07 Order name: O2 Sat Monitoring; Complete Time: 03:27 09/21 04:39 Order name: EKG Electrocardiogram EDMS 09/21 04:39 Order name: EKG Electrocardiogram EDMS 09/21 04:39 Order name: EKG Electrocardiogram EDMS 09/21 04:40 Order name: EKG Electrocardiogram EDMS Administered Medications: 03:27 Drug: Nitroglycerin 0.4 mg Route: Sublingual; tl2 04:00 Follow up: Response: Pain is decreased jd3 03:43 CANCELLED (Other Intervention Used): Zofran 4 mg IVP once; over 2 minutes jd3 03:43 Drug: Zofran 4 mg Route: PO; jd3 04:01 Follow up: Response: Nausea is decreased jd3 04:52 Drug: Nitroglycerin 0.4 mg Route: Sublingual; jd3 05:32 Follow up: Response: No adverse reaction; Pain is decreased jd3 04:52 Drug: NS 0.9% 500 ml Route: IV; Rate: bolus; Site: left upper arm; jd3 05:32 Follow up: Response: No adverse reaction; IV Status: Completed infusion; IV Intake: jd3 500ml Disposition: 09/21/18 04:20 Hospitalization ordered by Andriy Tapia for Observation. Preliminary diagnosis is Unstable angina. - Bed requested for Telemetry/MedSurg (observation). - Status is Observation. jd3 - Condition is Stable. - Problem is new. - Symptoms have improved. UTI on Admission? No Signatures: Dispatcher [employer] EDMS Tarsha Richardson RN RN ak1 Yajaira Hsu, RN RN cg Alaina Savage, RN RN tl2 Rodrigo Lazcano, RN RN jd3 Reginadl Loyd MD MD tw4 Corrections: (The following items were deleted from the chart) 03:43 03:07 Zofran 4 mg IVP once; over 2 minutes ordered. tw4 jd3 03:43 03:43 Zofran 4 mg IVP once; over 2 minutes ordered. jd3 jd3 04:45 04:20 Hospitalization Ordered by Andriy Tapia MD for Observation. Preliminary cg diagnosis is Unstable angina. Bed requested for Telemetry/MedSurg (observation). Status is Observation. Condition is Stable. Problem is new. Symptoms have improved. UTI on Admission? No. tw4 05:52 04:45 09/21/2018 04:20 Hospitalization Ordered by Andriy Tapia MD for Observation. jd3 Preliminary diagnosis is Unstable angina. Bed requested for Telemetry/MedSurg (observation). Status is Observation. Condition is Stable. Problem is new. Symptoms have improved. UTI on Admission? No. cg
--- NOTE | 2018-09-21 04:21 | ER ---
Nurse's Notes [facility] Name: Qi Morse Age: 68 yrs Sex: Female : 1950 Arrival Date: 09/21/2018 Time: 02:44 Bed 19 Private MD: Andriy Tapia Diagnosis: Unstable angina Presentation: 09/21 02:57 Presenting complaint: Patient states: central chest pain that radiates to left chest ak1 wall and left arm with nausea. pt with hx Afib and sees Dr. Le. Transition of care: patient was not received from another setting of care. Onset of symptoms was September 21, 2018. Risk Assessment: Do you want to hurt yourself or someone else? Patient reports no desire to harm self or others. Initial Sepsis Screen: Does the patient meet any 2 criteria? No. Patient's initial sepsis screen is negative. Does the patient have a suspected source of infection? No. Patient's initial sepsis screen is negative. Care prior to arrival: None. 02:57 Method Of Arrival: Wheelchair ak1 02:57 Acuity: DIPTI 3 ak1 Triage Assessment: 03:00 General: Appears uncomfortable, obese, well groomed, Behavior is calm, cooperative. ak1 Historical: - Allergies: 03:00 Demerol; ak1 03:00 Codeine (Upset stomach); ak1 - Home Meds: 03:00 levothyroxine oral [Active]; sotalol Oral [Active]; Eliquis oral oral [Active]; ak1 - PMHx: 03:00 Pancreatitis; Atrial Fib; ak1 - PSHx: 03:00 Partial thyroidectomy; right hip replacement; Cholecystectomy; Hysterectomy; ak1 hepaticojejunostomy; - Immunization history:: Adult Immunizations unknown. - Social history:: Smoking status: Patient/guardian denies using tobacco. - Ebola Screening: : No symptoms or risks identified at this time. Screenin:01 Abuse screen: Denies threats or abuse. Denies injuries from another. Nutritional ak1 screening: No deficits noted. Tuberculosis screening: No symptoms or risk factors identified. Fall Risk None identified. Assessment: 03:00 Pain: Complains of pain in anterior aspect of left upper chest, xyphoid area and ak1 mid-sternal area Pain radiates to left arm Pain began 3 hours ago. 03:15 General: Appears uncomfortable, Behavior is calm, cooperative, appropriate for age. jd3 Pain: Complains of pain in chest Pain radiates to anterior aspect of left upper chest and left arm Quality of pain is described as sharp, Pain began 3 hours ago. Neuro: Level of Consciousness is awake, alert, obeys commands, Oriented to person, place, time, situation, Appropriate for age. Cardiovascular: Capillary refill < 3 seconds Patient's skin is warm and dry. Rhythm is regular. Respiratory: Airway is patent Respiratory effort is even, unlabored, Respiratory pattern is regular, symmetrical, Denies shortness of breath. GI: Abdomen is round Reports nausea. : No signs and/or symptoms were reported regarding the genitourinary system. EENT: No signs and/or symptoms were reported regarding the EENT system. Derm: Skin is intact, Skin is dry, Skin is normal, Skin temperature is warm. Musculoskeletal: Circulation, motion, and sensation intact. Range of motion: intact in all extremities. 04:00 Reassessment: Patient appears in no apparent distress at this time. Patient and/or jd3 family updated on plan of care and expected duration. Pain level reassessed. Patient is alert, oriented x 3, equal unlabored respirations, skin warm/dry/pink. Patient states feeling better. 04:54 Reassessment: Patient appears in no apparent distress at this time. Patient and/or jd3 family updated on plan of care and expected duration. Pain level reassessed. Patient is alert, oriented x 3, equal unlabored respirations, skin warm/dry/pink. Vital Signs: 02:56 BP 157 / 106; Pulse 57; Resp 18; Pulse Ox 97% on R/A; Weight 136.08 kg (R); Height 5 ak1 ft. 6 in. (167.64 cm) (R); Pain 6/10; 03:41 Temp 97.9(O); jd3 03:55 BP 110 / 64; Pulse 52; Resp 17 S; Pulse Ox 98% on R/A; jd3 04:53 BP 108 / 60; Pulse 57; Resp 19 S; Pulse Ox 98% on R/A; jd3 02:56 Body Mass Index 48.42 (136.08 kg, 167.64 cm) ak1 ED Course: 02:44 Patient arrived in ED. am2 02:44 Andriy Tapia MD is Private Physician. am2 02:49 Reginald Loyd MD is Attending Physician. tw4 02:58 Triage completed. ak1 03:00 Arm band placed on Patient placed in an exam room, on a stretcher, on pulse oximetry, ak1 Patient notified of wait time. EKG completed in triage. Results shown to MD. 03:16 Rodrigo Lazcano, EUGENE is Primary Nurse. jd3 03:30 X-ray completed. Portable x-ray completed in exam room. Patient tolerated procedure jb2 well. 03:31 XRAY Chest (1 view) In Process Unspecified. EDMS 03:40 Missed attempt(s): 20 gauge in right antecubital area. Bleeding controlled, band aid jd3 applied, catheter tip intact. Missed attempt(s): 22 gauge in right hand. Bleeding controlled, band aid applied, catheter tip intact. 03:47 Patient has correct armband on for positive identification. Placed in gown. Bed in low jd3 position. Call light in reach. Side rails up X2. Adult w/ patient. site monitor on. Pulse ox on. NIBP on. 03:47 Patient maintains SpO2 saturation greater than 95% on room air. jd3 04:16 Inserted midline missed to right upper arm then 18 gauge 10 cm midline to left upper fc arm basilic vein. Line with good blood return and flushes well. 04:19 Andriy Tapia MD is Hospitalizing Provider. tw4 05:30 No provider procedures requiring assistance completed. Patient admitted, IV remains in jd3 place. Administered Medications: 03:27 Drug: Nitroglycerin 0.4 mg Route: Sublingual; tl2 04:00 Follow up: Response: Pain is decreased jd3 03:43 CANCELLED (Other Intervention Used): Zofran 4 mg IVP once; over 2 minutes jd3 03:43 Drug: Zofran 4 mg Route: PO; jd3 04:01 Follow up: Response: Nausea is decreased jd3 04:52 Drug: Nitroglycerin 0.4 mg Route: Sublingual; jd3 05:32 Follow up: Response: No adverse reaction; Pain is decreased jd3 04:52 Drug: NS 0.9% 500 ml Route: IV; Rate: bolus; Site: left upper arm; jd3 05:32 Follow up: Response: No adverse reaction; IV Status: Completed infusion; IV Intake: jd3 500ml Intake: 05:32 IV: 500ml; Total: 500ml. jd3 Outcome: 04:20 Decision to Hospitalize by Provider. tw4 05:31 Admitted to Med/surg accompanied by nurse, via stretcher, room 417, with chart, Report jkarolina called to Mayelin KNIGHT 05:31 Condition: stable 05:31 Instructed on the need for admit, Demonstrated understanding of instructions. 05:52 Patient left the ED. venkatesh Signatures: Dispatcher [employer] EDKhurram Piña Felicia, RN RN Tarsha Swain RN RN ak1 Alaina Savage RN RN tl2 Hannah Godfrey Jonathon RN RN Reginald Evans MD MD tw4 Corrections: (The following items were deleted from the chart) 04:03 03:55 Pulse 52bpm; Resp 17bpm; Spontaneous; Pulse Ox 98% RA; venkatesh riddle
[2018-09-21] MEDS ORDERED: ACETAMINOPHEN 500 MG TAB PO PRN (04:36)
[2018-09-21] MEDS ORDERED: NA CHLORIDE 0.9% 500 ML ONE (04:57)
[2018-09-21 06:26] VITALS: BMI 48.4
--- NOTE | 2018-09-21 08:20 | RAD REPORT ---
EXAM DESCRIPTION: RAD - Chest Single View - 09/21/2018 3:31 am CLINICAL HISTORY: CHEST PAIN Chest pain. COMPARISON: Chest Single View dated 02/05/2018; CHEST SINGLE VIEW dated 06/27/2011; CHEST SINGLE VIEW dated 09/02/2008; CHEST PA AND LAT 2 VIEW dated 06/25/2008 FINDINGS: Portable technique limits examination quality. The lungs are underinflated resulting in vascular crowding. No focal infiltrate is seen. The heart is mildly prominent in size. No displaced fractures. IMPRESSION: Underinflated lungs.
[2018-09-21] MEDS: ASPIRIN EC 81 MG TAB PO SCH (09:00)
[2018-09-21] MEDS ORDERED: NITROGLYCERIN 0.4 MG/TAB SL PRN (09:25)
[2018-09-21] MEDS: SOTALOL HCL 80 MG TAB PO SCH ×2 (10:17→17:19)
[2018-09-21 10:29] LABS: Thyroid Stimulating Hormone 4.07 uIU/mL (0.360-3.740)
--- NOTE | 2018-09-21 17:10 | EKG ---
Test Date: 2018-09-21 Test Time: 02:53:26 Wrecker Operator: AYAAN MEASUREMENT RESULTS: Intervals: Rate: 55 VT: 208 QRSD: 100 QT: 450 QTc: 430 [place]: P: 8 VT: 208 QRS: 95 T: 62 INTERPRETIVE STATEMENTS: Sinus bradycardia with premature atrial complexes Rightward axis Low voltage QRS Cannot rule out Anterior infarct, age undetermined Abnormal ECG Compared to ECG 02/08/2018 02:10:44 Atrial premature complex(es) now present Right-axis deviation now present Myocardial infarct finding now present Atrial fibrillation no longer present Electronically Signed On 09-21-18 17:07:02 CLASS [employer] TRUCK DRIVER by Colin Mejia
--- NOTE | 2018-09-21 17:32 | ECHO ---
HEIGHT: 5 ft 6 in WEIGHT: 300 lb 0 oz DATE OF STUDY: 09/21/[address]: Andriy Tapia MD 2-DIMENSIONAL: YES M.MODE: YES DOPPLER: YES COLOR FLOW: YES TDS: YES PORTABLE: NO DEFINITY: NO BUBBLE STUDY: NO DIAGNOSIS: ELEVATED TROPONIN CARDIAC HISTORY: CATHERIZATION: NO SURGERY: NO PROSTHETIC VALVE: NO PACEMAKER: NO MEASUREMENTS (cm) DIASTOLIC (NORMALS) SYSTOLIC (NORMALS) IVSd 1.2 (0.6-1.2) LA Diam 1.9 (1.9-4.0) LVEF 69% LVIDd 4.2 (3.5-5.7) LVIDs 2.6 (2.0-3.5) %FS 38% LVPWd 1.3 (0.6-1.2) Ao Diam 3.1 (2.0-3.7) 2 DIMENSIONAL ASSESSMENT: RIGHT ATRIUM: NORMAL LEFT ATRIUM: DILATED RIGHT VENTRICLE: NORMAL LEFT VENTRICLE: NORMAL TRICUSPID VALVE: NORMAL MITRAL VALVE: NORMAL PULMONIC VALVE: NORMAL AORTIC VALVE: NORMAL PERICARDIAL EFFUSION: NONE AORTIC ROOT: NORMAL LEFT VENTRICULAR WALL MOTION: NORMAL. DOPPLER/COLOR FLOW: MILD TRICUSPID REGURGITATION. COMMENTS: MILD TRICUPSID REGURGITATION. NORMAL LEFT VENTRICULAR SIZE AND FUNCTION. TECHNICALLY DIFFICULT STUDY. NO WALL MOTION ABNORMALITIES. TECHNOLOGIST: NADIR RANDOLPH
[2018-09-21] MEDS ORDERED: APIXABAN 5 MG TABLET PO SCH (21:00)
--- NOTE | 2018-09-22 01:59 | CON ---
Date of Consultation: 09/21/2018 The patient is admitted to Dr. Tapia's service on 09/21/2018. The patient was seen on 09/21/2018. Reason For Consultation: Non-ST elevation myocardial infarction. History Of Present Illness: Ms. Morse is a 68-year-old white woman with a history of atrial fibrilla tion and pancreatitis. She was recently seen by Dr. Le for new onset atrial fibrillation, was pl aced on sotalol and Eliquis. She has done well as far as that is concerned, although she states she rarely has some episodes of what sounds like atrial fibrillation with a controlled rate. She came in with substernal chest pressure radiating to the back with some nausea, diaphoresis, and shortness of breath. Denied PND, orthopnea, pedal edema, palpitations, or syncope. Her EKG did not show any acu te changes. However, she did have a troponin of 3.67 and we were consulted for further evaluation an d treatment. Past Medical History: As stated above. Review of Systems: Negative. Social History: Negative. Family History: Noncontributory. Medications: At home include Eliquis, Synthroid, sotalol, and meloxicam. She received a dose of Lucie jose g today. Physical Examination: Vital signs: Ms. Morse weighs 300 pounds. Her vital signs were stable. She was afebrile. HEENT: Negative. Neck: Supple without any bruit, lymphadenopathy, JVD, or thyromegaly. Chest: Clear to auscultation and percussion. Cardiac: Revealed a regular rhythm and rate without any murmurs, gallops, or rubs. Abdomen: Benign. Extremities: Revealed no clubbing, cyanosis, or edema. Diagnostic Data: As stated earlier. Impression And Plan: 1.Non-ST elevation myocardial infarction. 2.Hypothyroidism, on Synthroid. 3.Atrial fibrillation that has resolved on sotalol and Eliquis. 4.Arthritis for which she takes meloxicam. 5.Obesity. The patient and the family were present. The case was discussed with them and with Dr. Tapia. The patient needs a left heart catheterization to rule out coronary artery disease and define her scott ry anatomy. She understands the risk and the benefit of the procedure and she agrees to proceed. We will hold Eliquis for now. We will plan to perform a left heart catheterization on her with possibl e intervention on September 23, 2018. MACIEJ/DIONICIO Voice ID: [id number] Report ID: [id number]
[2018-09-22 04:54] LABS: Absolute Lymphocytes (CBC) 1.9 K/uL (0.7-4.9); Absolute Monocytes 0.6 K/uL (0.1-1.3); Eosinophils % 2.7 % (0-4.4); Hematocrit 41.2 % (36.0-45.0); Lymphocytes % 33.3 % (15.3-44.8); MPV 9.1 fL (7.6-11.3); Monocytes % 10.7 % (3.3-12.3); RBC Red Blood Cell Count 4.56 M/uL (3.86-4.86)
[2018-09-22 05:01] LABS: Potassium 4.1 mmol/L (3.5-5.1)
[2018-09-22] MEDS: SOTALOL HCL 80 MG TAB PO SCH ×2 (06:09→17:32)
[2018-09-22] MEDS: LEVOTHYROXINE SOD 0.125 MG TAB PO SCH (06:09)
[2018-09-22] MEDS: ASPIRIN EC 81 MG TAB PO SCH (08:21)
[2018-09-22 12:09] LABS: Urine Appearance CLOUDY; Urine Blood NEGATIVE (NEG); Urine Color DK YELLOW; Urine Glucose NEGATIVE (NEG); Urine Protein NEGATIVE (NEG); Urine Specific Gravity >=1.030 (1.005-1.030); Urine pH 5.5 (5.0-7.0)
--- NOTE | 2018-09-22 12:29 | EKG ---
Test Date: 2018-09-22 Test Time: 07:42:16 Digital Photo Printer: YELENA MEASUREMENT RESULTS: Intervals: Rate: 50 RI: 212 QRSD: 102 QT: 510 QTc: 464 [place]: P: 48 RI: 212 QRS: 72 T: 21 INTERPRETIVE STATEMENTS: Sinus bradycardia with 1st degree AV block Low voltage QRS Cannot rule out Anterior infarct, age undetermined Abnormal ECG Compared to ECG 09/21/2018 02:53:26 First degree AV block now present Atrial premature complex(es) no longer present Right-axis deviation no longer present Myocardial infarct finding still present Electronically Signed On 09-22-18 12:27:49 HAND PICKER by Rey Le
[2018-09-22 13:32] LABS: Urine Bilirubin NEGATIVE (NEG)
[2018-09-22 13:50] LABS: Urine Bacteria <20 /HPF (<20); Urine RBC <5 /HPF (NONE SEEN)
[2018-09-22 13:51] LABS: Urine Culture Reflex Order NOT NEEDED; Urine Mucus 2+ /HPF (NONE SEEN)
--- NOTE | 2018-09-22 22:23 | PN ---
Date of Progress Note: 09/22/2018 Mrs. Morse has abnormal troponins with history of atrial fibrillation and morbid obesity. Her EKGs a nd echocardiogram, all look good. I think we need to do a cardiac cath and make a diagnosis of what her coronary situation is, and if there is a need for it, we will put a stent in tomorrow. She has m ultivessel disease and needs a bypass surgery. We will talk about that and make a transfer. If the cardiac cath is scheduled for tomorrow, we will try a radial approach and will be ready to put a sten t in, if it is appropriate. RAPHAEL/DIONICIO Voice ID: [id number] Report ID: [id number]
[2018-09-23] MEDS: SOTALOL HCL 80 MG TAB PO SCH (05:33)
[2018-09-23] MEDS: ASPIRIN EC 81 MG TAB PO SCH (05:34)
[2018-09-23] MEDS: LEVOTHYROXINE SOD 0.125 MG TAB PO SCH (05:39)
[2018-09-23] MEDS ORDERED: NA CHLORIDE 0.9% 1,000 ML ONE (05:41)
[2018-09-23] MEDS ORDERED: LIDOCAINE 1% 20 ML MDV ONE (06:45)
[2018-09-23] MEDS ORDERED: HEPA 1000U/500MLS 2,000 UNIT/1,000 ML BAG IV ONE (06:45)
[2018-09-23] MEDS ORDERED: MIDAZOLAM HCL 2 MG/2 ML INJ ONE (07:04)
[2018-09-23] MEDS ORDERED: NA CHLORIDE 0.9% 0 ML IV ONE (07:04)
[2018-09-23] MEDS ORDERED: FENTANYL CITR 100 MCG/2 ML ONE (07:04)
[2018-09-23] MEDS ORDERED: NITROGLYCERIN/D5W 50 MG/250 ML BTL IV ONE (07:13)
[2018-09-23] MEDS ORDERED: NICARDIPINE HCL 25 MG/10 ML IV ONE (07:13)
[2018-09-23] MEDS ORDERED: HEPARIN 5000 UNIT/ML 1 ML VIAL ONE (07:24)
[2018-09-23] MEDS ORDERED: NITROGLYCERIN/D5W 25 MG/250 ML BTL IV ONE (07:28)
[2018-09-23 09:49] VITALS: O2SAT 92
--- NOTE | 2018-09-23 16:17 | HP ---
Date of Admission: 09/22/2018 Entrance Complaint: Chest pain. History Of Present Illness: The patient states she was fine when she went to bed. 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 It w as associated with some nausea. She therefore presented to the emergency room due to the possibility of a cardia event. Patient has no prior history of myocardial infarction and/or angina, has developed atrial fib within the past year, has been placed on medication for this and this seemingly controls her symptoms. She is not aware of any abnormalities. Past Medical History: The patient has a history of pancreatitis, obviously an obesity problem associ ated with some hypertension and hyperlipidemia. Social History: Nonsmoker and nondrinker. Family History: Noncontributory. Physical Examination: General: Patient is an obese elderly female. At the time she was seen, she was asymptomatic. Vital Signs: Stable. Head and Neck: Normocephalic. Pupils equal, reactive to light and accommodation. Fundi negative. Trachea midline. Thyroid not palpable. ENT: Negative. Chest: Clear to P and A. Cardiovascular: PMI in midclavicular line. Heart: Sounds normal. Peripheral pulses are present and equal bilaterally. Abdomen: Obese. No organomegaly. Bowel sounds present. Extremities: Good tone and movement bilaterally. Reflexes are physiologic. Rectal: Deferred. Pelvic: Deferred. Impression: Chest pain, probable coronary artery disease, atrial fibrillation controlled, obesity. Plan: Patient will be admitted. Even though she did not have an elevated troponin, she had some que stionable changes on her EKG, and due to the symptomatology, it was felt that she should be evaluated and at least observed and this was done. HR/MODL Voice ID: [id number]
[2018-09-23 16:37] VITALS: BP 116/67; TEMP 99.8
--- NOTE | 2018-09-23 18:11 | PN ---
Date of Progress Note: 09/23/2018 The patient is still asymptomatic. Catheterization was basically negative. She was discharged. Con tinued on the same medication with a prescription for nitroglycerin and strong suggestion for exercis e, diet. Suspect coronary artery spasm and/or angina, possibly aggravated by her atrial fibrillation . Discharged in good condition. HR/MODL Voice ID: [id number] Report ID: [id number]
--- NOTE | 2018-09-23 18:56 | OP ---
Surgeon: Rey Le MD Procedures: Left heart catheterization, coronary left ventricular angiography. Procedure Findings: The patient has normal coronary arteries, normal left ventricular ejection fract ion, normal segmental wall motion, and normal left ventricular end-diastolic pressure, normal systoli c blood pressure. Procedure In Detail: The patient was brought to the cardiac grass farm laborer in a fasting state, sedated wit h Versed and fentanyl. Prepared and draped in the usual sterile fashion. After sedation, the right radial artery was palpated. The tissues around the artery were anesthetized with 1% lidocaine. The artery was entered using a 21-gauge needle, cannulated with a 0.021 inch diameter guidewire, and then using modified Seldinger technique, a 6-Sami radial sheath was placed into the artery. It was flu shed with the radial cocktail consisting of nicardipine, heparin, and nitroglycerin. We proceeded wi th the cardiac cath procedure using a TIG catheter by [employer]. This was guided into the ascending aor ta using a [employer] Glidewire and fluoroscopy. We angiogram the right coronary, left coronary, left ve ntricle, all with the same TIG catheter. At the end of the procedure, the catheter was removed over a wire. The wire was used to straighten it. The sheath was then flushed, removed and the arteriotom y closed with a TR band. Estimated Blood Loss: 5 cc. Complications: None. Director Data: Fariba Tate. RAPHAEL/DIONICIO Voice ID: [id number] Report ID: [id number]
--- NOTE | 2018-09-24 08:36 | PN ---
Date of Progress Note: 09/22/2018 Subjective: Patient is basically asymptomatic. She is being scheduled for a catheterization in the morning. Her troponins, however initial 1 was in the 3+ range, has dropped down. Remainder of her w orkup has been negative including an echo, probability of being a, non-ST elevated myocardial infarct ion was considered in the differential by Cardiology, and she was therefore scheduled for her procedu re. HR/MODL Voice ID: [id number] Report ID: [id number]
== END 2018-09-23 16:07 | disposition home or self-care (01) | DRG 287 ==
LOC: ER 02:43 → ERHOLD 05:00 → 4TH 05:33 → OBSVTOIN 09-22 14:03
PROVIDERS: ADMIT Family Medicine; ATTEND Family Medicine
PROC: 4A023N7 Measurement of Cardiac Sampling and Pressure, Left Heart, Percutaneous Approach (ICD-10-PCS; principal; 2018-09-23)
PROC: B2111ZZ Fluoroscopy of Multiple Coronary Arteries using Low Osmolar Contrast (ICD-10-PCS; 2018-09-23)
DX: I20.1 Angina pectoris with documented spasm (principal); Z68.42 Body mass index [BMI] 45.0-49.9, adult; I10 Essential (primary) hypertension; I48.91 Unspecified atrial fibrillation; Z79.01 Long term (current) use of anticoagulants; E66.01 Morbid (severe) obesity due to excess calories; E78.5 Hyperlipidemia, unspecified; E03.9 Hypothyroidism, unspecified; M19.90 Unspecified osteoarthritis, unspecified site
CPT/HCPCS: 36415; 71045; 80048; 80076; 81001; 83735; 83880; 84439; 84443; 84484; 85025; 85610; 86038; 93005; 93306; 93458; 96360; 99285; C1893; G0378; J0583; J1644; J2250; J2405; J3010; J7030

== ENCOUNTER 2025-03-23 17:53 | Inpatient (IN) | payer BC, OTHER ==
--- NOTE | 2025-03-23 18:56 | RAD REPORT ---
EXAMINATION: ONE VIEW CHEST XR CLINICAL INDICATION: COUGH TECHNIQUE: Frontal chest projection is submitted. Examination is limited by patient positioning and t echnique. COMPARISON: 09/21/2018 FINDINGS: Mild bilateral pulmonary edema is suspected. The heart is upper limit of normal in size. No displaced fractures identified. IMPRESSION: Mild CHF versus volume overload pattern is suspected.
[2025-03-23 19:04] LABS: Absolute Lymphocytes (CBC) 0.7 K/uL (0.7-4.9); Hematocrit 37.3 % (36.0-45.0); Hemoglobin 12.6 g/dL (12.0-15.0); MCH 30.3 pg (27.0-35.0); MCHC 33.9 g/dL (32.0-36.0); MCV 89.4 fL (80-100); MPV 8.7 fL (7.6-11.3); Nucleated RBC Absolute Count 0.0 (0-0); Nucleated Red Blood Cells % 0.1 % (0-0); RBC Red Blood Cell Count 4.17 M/uL (3.86-4.86); White Blood Count 8.80 thou/uL (4.3-10.9)
[2025-03-23] MEDS ORDERED: NA CHLORIDE 0.9% 500 ML ONE (19:12)
[2025-03-23 19:13] LABS: PT Prothrombin Time 20.1 SECONDS (10-13.0); PTT, Activated Partial Thromb 31.6 SECONDS (27.2-37.4); Protime INR 1.81
[2025-03-23 19:25] LABS: ALT/SGPT 57.0 U/L (13-56); AST/SGOT 59.0 U/L (15-37); Albumin 2.7 g/dL (3.4-5.0); Albumin/Globulin Ratio 0.7 (1.1-1.8); Alkaline Phosphatase 166.0 U/L (45-117); Anion Gap 6.5 mEq/L (5.0-15.0); BUN Blood Urea Nitrogen 12.0 mg/dL (7-18); Globulin 4.0 g/dL (2.3-3.5); Glucose Level 118.0 mg/dL (74-106); NT PRO-BNP 289.0 pg/mL (<125); Potassium 3.5 mEq/L (3.5-5.1); Troponin High Sensitivity 5.9 pg/mL (<58.9)
[2025-03-23] MEDS ORDERED: ACETAMINOPHEN 500 MG TAB ONE (19:25)
[2025-03-23] MEDS ORDERED: IBUPROFEN 400 MG TAB ONE (19:25)
[2025-03-23] MEDS ORDERED: MORPHINE 4 MG/ML SYR ONE (19:25)
[2025-03-23] MEDS ORDERED: ONDANSETRON 4 MG/2 ML VIAL ONE (19:25)
[2025-03-23 19:41] LABS: Influenza A Ag Negative; Influenza B Ag Negative; SARS-CoV-2 Antigen Rapid Res Negative (Negative)
--- NOTE | 2025-03-23 22:33 | RAD REPORT ---
EXAM: Right upper quadrant ultrasound. CLINICAL HISTORY: ABD PAIN COMPARISON: None. FINDINGS: Gallbladder: Surgically absent. Bile ducts: No intrahepatic or extrahepatic biliary dilatation. Common bile duct measures 4 mm. Limited imaging of the liver shows no concerning finding. IMPRESSION: Unremarkable exam.
[2025-03-24 00:12] LABS: Sqamous Epithelial <5 /HPF (None Seen); Urine Culture Reflex Order REFLEXED; Urine Microscopic Reflex YN ORDER UMIC
[2025-03-24] MEDS ORDERED: CEFTRIAXONE 1000 MG/VIAL ONE (00:42)
--- NOTE | 2025-03-24 00:42 | ER ---
Nurse's Notes [facility] Name: Qi Morse Age: 74 yrs Sex: Female : 1950 Arrival Date: 03/23/2025 Time: 17:53 Bed 13 Private MD: Diagnosis: Chest pain, unspecified;UTI/ Urinary tract infection, site not specified Presentation: 03/23 17:59 Chief complaint: Patient states: she has been feeling weak and nauseated for approx 3 ap3 days. patient reports vomiting x's 2 today. Coronavirus screen: Client presents with at least one sign or symptom that may indicate coronavirus-19. Ebola Screen: No symptoms or risks identified at this time. Initial Sepsis Screen: Does the patient meet any 2 criteria? HR > 90 bpm. Does the patient have a suspected source of infection? No. Patient's initial sepsis screen is negative. Risk Assessment: Do you want to hurt yourself or someone else? Patient reports no desire to harm self or others. Onset of symptoms was March 21, 2025. 17:59 Method Of Arrival: Wheelchair ap3 17:59 Acuity: DIPTI 2 ap3 Triage Assessment: 18:02 General: Appears ill, Behavior is calm, cooperative, appropriate for age, Reports ap3 chills for feeling ill for fatigue for. Neuro: Level of Consciousness is awake, alert, obeys commands, Oriented to person, place, time, situation, Appropriate for age. Cardiovascular: Patient's skin is warm and dry. Respiratory: Airway is patent Respiratory effort is even, unlabored, Respiratory pattern is regular, symmetrical. GI: Reports nausea, vomiting. Historical: - Allergies: 18:01 Codeine (Upset stomach); ap3 18:01 Demerol; ap3 - PMHx: 18:01 Atrial Fib; Pancreatitis; Hypertensive disorder; Hypothyroidism; ap3 - PSHx: 18:01 Cholecystectomy; dr5 - Immunization history:: Adult Immunizations up to date. - Infectious Disease History:: Denies. - Social history:: Smoking status: Patient denies any tobacco usage or history of. Screenin:02 [facility] ED Fall Risk Assessment (Adult) History of falling in the last 3 months, ap3 including since admission No falls in past 3 months (0 pts) Confusion or Disorientation No (0 pts) Intoxicated or Sedated No (0 pts) Impaired Gait Yes (1 pt) Mobility Assist Device Used Yes (1 pt) Altered Elimination No (0 pt) Score/Fall Risk Level 0 - 2 = Low Risk Oriented to surroundings, Maintained a safe environment, Educated pt \T\ family on fall prevention, incl call for assistance when getting out of bed, Assessed \T\ reinforced patient's understanding of fall precautions, Hourly rounding (assess needs \T\ fall precautionary measures) done, Used ambulatory aids as needed (educated on \T\ assisted with). Abuse screen: Denies threats or abuse. Nutritional screening: No deficits noted. Tuberculosis screening:. Assessment: 18:20 General: Appears in no apparent distress. Behavior is cooperative. Neuro: Level of kj2 Consciousness is awake, alert, obeys commands, Oriented to person, place, time, situation. Cardiovascular: Patient's skin is warm and dry. Respiratory: Airway Respiratory effort is unlabored. GI: No signs and/or symptoms were reported involving the gastrointestinal system. : No signs and/or symptoms were reported regarding the genitourinary system. 19:20 Reassessment: Patient appears in no apparent distress at this time. Patient and/or kj2 family updated on plan of care and expected duration. Pain level reassessed. Patient is alert, oriented x 3, equal unlabored respirations, skin warm/dry/pink. 20:00 Reassessment: Patient appears in no apparent distress at this time. Patient and/or kj2 family updated on plan of care and expected duration. Pain level reassessed. Patient is alert, oriented x 3, equal unlabored respirations, skin warm/dry/pink. 21:00 Reassessment: Patient appears in no apparent distress at this time. Patient and/or kj2 family updated on plan of care and expected duration. Pain level reassessed. Patient is alert, oriented x 3, equal unlabored respirations, skin warm/dry/pink. 21:37 Reassessment: Patient appears in no apparent distress at this time. Patient and/or kj2 family updated on plan of care and expected duration. Pain level reassessed. Patient is alert, oriented x 3, equal unlabored respirations, skin warm/dry/pink. 22:37 Reassessment: Patient appears in no apparent distress at this time. Patient and/or kj2 family updated on plan of care and expected duration. Pain level reassessed. Patient is alert, oriented x 3, equal unlabored respirations, skin warm/dry/pink. 23:43 Reassessment: Patient appears in no apparent distress at this time. Patient and/or kj2 family updated on plan of care and expected duration. Pain level reassessed. Patient is alert, oriented x 3, equal unlabored respirations, skin warm/dry/pink. 03/24 01:04 Reassessment: 1 gram Rocephin given IVP, no s/s of distress noted. General: Appears in tb4 no apparent distress. Behavior is calm, cooperative. Pain: Denies pain. Neuro: No deficits noted. Level of Consciousness is awake, alert, obeys commands, Oriented to person, place, time, situation, Roll Plugger Machine Operator are equal bilaterally Moves all extremities. Full function Weakness in bilateral foot/feet Speech is normal. Respiratory: Airway is patent Trachea midline Respiratory effort is even, unlabored, Respiratory pattern is regular, symmetrical. Vital Signs: 03/23 17:59 Temp 102.9(O); Pulse Ox 94% on R/A; Weight 104.33 kg; Height 5 ft. 6 in. ; ap3 18:08 BP 111 / 59; Pulse 88; Resp 21; ap3 19:15 BP 121 / 75; Pulse 82; Resp 20; Pulse Ox 93% on R/A; kj2 19:47 BP 134 / 74; Pulse 75; Resp 18; Pulse Ox 93% on R/A; kj2 21:00 BP 114 / 69; Pulse 68; Resp 18; Pulse Ox 93% ; kj2 21:37 BP 113 / 59; Pulse 68; Resp 20; Temp 98.4; Pulse Ox 96% on R/A; kj2 22:37 BP 119 / 65; Pulse 63; Resp 20; Pulse Ox 95% on R/A; kj2 23:43 BP 100 / 64; Pulse 60; Resp 18; Pulse Ox 94% on R/A; kj2 03/24 01:04 BP 99 / 97; Pulse 67; Resp 18; Pulse Ox 100% on R/A; Pain 0/10; tb4 03/23 17:59 Body Mass Index 37.12 (104.33 kg, 167.64 cm) ap3 03/24 01:04 Pain Scale: Adult tb4 ED Course: 03/23 17:58 Patient arrived in ED. dr5 17:58 [facility] 17:58 Paulette Carlos MD is Attending Physician. dr5 18:01 Triage completed. ap3 18:03 Arm band placed on right wrist. ap3 18:03 Client placed on continuous cardiac and pulse oximetry monitoring. NIBP monitoring ap3 applied. surveillance system monitor on. Pulse ox on. NIBP on. 18:07 Katarina Mae, RN is Primary Nurse. kj2 18:30 Patient has correct armband on for positive identification. Bed in low position. Call kj2 light in reach. Side rails up X 1. Provided Education on: call light. 18:30 Inserted saline lock: 20 gauge in left antecubital area, using aseptic technique. Blood kj2 collected. Flushed with 10 mL NS. 18:48 Chest Single View XRAY In Process Unspecified. EDMS 22:31 US Abdomen Limited In Process Unspecified. EDMS 23:16 CT Abd/Pelvis - IV Contrast Only In Process Unspecified. EDMS 23:38 UA Rfx Luigi Cult if indicated Sent. oe 08 00:39 Irwin Ledezma, RN is Hospitalizing Provider. dr5 01:10 No provider procedures requiring assistance completed. tb4 Administered Medications: 07 18:58 CANCELLED (Inappropriate at this time): ns 0.9% 2000 ml IV at 1000 ml once; to be given dr5 as a bolus over 60 minutes 19:22 Drug: NS 0.9% IV 500 ml IV at per protocol once; to be given as a bolus over 30 minutes kj2 Route: IV; Rate: per protocol; Site: left antecubital; 21:37 Follow up: IV Status: Completed infusion; IV Intake: 500ml kj2 19:32 Drug: morphine IVP or IV 4 mg IVP once over 4 mins Route: IVP; Infused Over: 4 mins; kj2 Site: left antecubital; 20:48 Follow up: Response: No adverse reaction kj2 19:32 Drug: Ondansetron IVP 4 mg IVP once; over 2 minutes Route: IVP; Site: left antecubital; kj2 20:48 Follow up: Response: No adverse reaction kj2 19:32 Drug: Ibuprofen PO 800 mg PO once Route: PO; kj2 20:47 Follow up: Response: No adverse reaction kj2 19:32 Drug: Acetaminophen PO 1000 mg PO once Route: PO; kj2 20:47 Follow up: Response: No adverse reaction kj2 03/24 01:04 Drug: Rocephin IV 1 grams IV at per protocol once; Given slow IV push per pharmacy tb4 instructions Route: IV; Rate: per protocol; Site: left antecubital; 01:10 Follow up: Response: No adverse reaction; IV Status: Completed infusion tb4 Medication: 01:10 VIS not applicable for this client. tb4 Intake: 03/23 21:37 IV: 500ml; Total: 500ml. kj2 Outcome: 03/24 00:41 Decision to Hospitalize by Provider. dr5 02:43 Patient left the ED. tb4 Signatures: Dispatcher [employer] EDMS Alex Coello Amanda RN RN ap3 Katarina Mae, RN RN kj2 Josef Vidal, LEAD CARE MANAGER-C LEAD CARE MANAGER-Cdr5 Rosemary Paula, RN RN tb4 Corrections: (The following items were deleted from the chart) 03/23 18:08 18:08 BP 111 / 59; Pulse 88bpm; ap3 ap3 19:49 19:47 BP 134 / 74; Pulse 75bpm; Resp 18bpm; Pulse Ox 93% RA; kj2 kj2 22:38 22:37 BP 119 / 65; Pulse 63bpm; Resp 20bpm; Pulse Ox 100% RA; kj2 kj2
--- NOTE | 2025-03-24 00:42 | EDPHYS ---
Physician Documentation [facility] Name: Qi Morse Age: 74 yrs Sex: Female : 1950 Arrival Date: 03/23/2025 Time: 17:53 Bed 13 Private MD: ED Physician Paulette Carlos HPI: 03/23 18:54 This 74 yrs old Female presents to ER via Wheelchair with complaints of dr5 Weakness. 18:54 The patient presents to the emergency department with weakness of the entire body, dr5 generalized weakness, that is mild. Onset: The symptoms/episode began/occurred 3 day(s) ago. Patient is a 74-year-old female with history of A-fib, pancreatitis, hypertension, hypothyroidism coming in for fever, weakness for the past 3 days. Patient reports that she has had symptoms like this in the past and no doctor has had mental figure out why she feels weak. Patient reports cough, shortness of breath, nausea with abdominal pain, and generalized body aches.. Historical: - Allergies: 18:01 Codeine (Upset stomach); ap3 18:01 Demerol; ap3 - PMHx: 18:01 Atrial Fib; Pancreatitis; Hypertensive disorder; Hypothyroidism; ap3 - PSHx: 18:01 Cholecystectomy; dr5 - Immunization history:: Adult Immunizations up to date. - Infectious Disease History:: Denies. - Social history:: Smoking status: Patient denies any tobacco usage or history of. ROS: 18:54 Constitutional: as per hpi dr5 Exam: 18:54 Constitutional: This is a well developed, well nourished patient who is awake, alert, dr5 and in no mild distress. Patient is obese. Head/Face: Normocephalic, atraumatic. ENT: Nares patent. No nasal discharge, no septal abnormalities noted. Tympanic membranes are normal and external auditory canals are clear. Oropharynx with no redness, swelling, or masses, exudates, or evidence of obstruction, uvula midline. Mucous membranes moist. Neck: Trachea midline, no thyromegaly or masses palpated, and no cervical lymphadenopathy. Supple, full range of motion without nuchal rigidity, or vertebral point tenderness. No Meningismus. Chest/axilla: Normal chest wall appearance and motion. Nontender with no deformity. No lesions are appreciated. Cardiovascular: Regular rate and rhythm with a normal S1 and S2. Normal PMI, no JVD. No pulse deficits. Respiratory: Lungs have equal breath sounds bilaterally, clear to auscultation. No rales, rhonchi or wheezes noted. No increased work of breathing, no retractions or nasal flaring. Back: No spinal tenderness. No costovertebral tenderness. Full range of motion. Skin: Warm, dry with normal turgor. Normal color with no rashes, no lesions, and no evidence of cellulitis. MS/ Extremity: Pulses equal, no cyanosis. Neurovascular intact. Full, normal range of motion. Neuro: Awake and alert, GCS 15, oriented to person, place, time, and situation. Cranial nerves II-XII grossly intact. Motor strength 5/5 in all extremities. Sensory grossly intact. Cerebellar exam normal. Normal gait. Vital Signs: 17:59 Temp 102.9(O); Pulse Ox 94% on R/A; Weight 104.33 kg; Height 5 ft. 6 in. ; ap3 18:08 BP 111 / 59; Pulse 88; Resp 21; ap3 19:15 BP 121 / 75; Pulse 82; Resp 20; Pulse Ox 93% on R/A; kj2 19:47 BP 134 / 74; Pulse 75; Resp 18; Pulse Ox 93% on R/A; kj2 21:00 BP 114 / 69; Pulse 68; Resp 18; Pulse Ox 93% ; kj2 21:37 BP 113 / 59; Pulse 68; Resp 20; Temp 98.4; Pulse Ox 96% on R/A; kj2 22:37 BP 119 / 65; Pulse 63; Resp 20; Pulse Ox 95% on R/A; kj2 23:43 BP 100 / 64; Pulse 60; Resp 18; Pulse Ox 94% on R/A; kj2 08 01:04 BP 99 / 97; Pulse 67; Resp 18; Pulse Ox 100% on R/A; Pain 0/10; tb4 03/23 17:59 Body Mass Index 37.12 (104.33 kg, 167.64 cm) ap3 08 01:04 Pain Scale: Adult tb4 MDM: 03/23 17:59 Medical Screening Exam initiated dr5 23:17 Data reviewed: vital signs, nurses notes, lab test result(s), cardiac enzymes, troponin dr5 i, CBC, white blood cell count, hemoglobin, hematocrit, platelets, electrolytes, sodium, potassium, chloride, serum bicarbonate, BUN, creatinine, serum glucose, Lactic Acid, EKG, radiologic studies, CT scan, plain films. Consideration of Admission/Observation Patient was admitted/placed on observation. Management of patient was discussed with the following: Hospitalist: Dr. Ledezma. I considered the following discharge prescriptions or medication management in the emergency department I discussed and recommended Over The Counter medications, Medications were administered in the Emergency Department. See MAR. Care significantly affected by the following chronic conditions: A-fib, Pancreatitis, Hypertension, Hypothyroidism. Care significantly affected by the following Social Determinants of Health: Poor access to healthcare and/or lack of insurance, Poor access to transportation, Problems related to employment. Counseling: I had a detailed discussion with the patient and/or guardian regarding the historical points, exam findings, and any diagnostic results supporting the discharge/admit diagnosis, the presence of at least one elevated blood pressure reading (>120/80) during this emergency department visit, lab results, radiology results, the need for further work-up and treatment in the hospital. Medication response: ibuprofen administration has improved the patient's temperature, acetaminophen administration has lowered the patient's temperature. Response to treatment: the patient's symptoms have markedly improved after treatment. ED course: . 03/24 00:31 Awaiting: CT scan results, Requested expedited CT read of CTAP in order to admit dr5 patient. Patient also found to have urinary tract infection and Rocephin IV ordered.. 03/23 18:00 Order name: BNP; Complete Time: :03/23 18:00 Order name: Blood Culture Adult (2) [facility] 03/23 18:00 Order name: CBC with Diff; Complete Time: :03/23 18:00 Order name: CMP; Complete Time: :03/23 18:00 Order name: Lactate w/ 2H reflex if indic.; Complete Time: :03/23 18:00 Order name: Protime (+inr); Complete Time: 19:03/23 18:00 Order name: Ptt, Activated; Complete Time: 19:16 03/23 18:00 Order name: Troponin HS; Complete Time: :03/23 18:00 Order name: UA Rfx Luigi Cult if indicated; Complete Time: 00:31 18:00 Order name: COVID-19 Ag + Flu A+B Ag; Complete Time: 19:54 [facility] 03/24 00:22 Order name: Urine Culture [facility] 03/23 18:00 Order name: Chest Single View XRAY; Complete Time: 18:57 [facility] 03/23 22:03 Order name: CT Abd/Pelvis - IV Contrast Only [facility] 03/23 22:11 Order name: US Abdomen Limited; Complete Time: 22:36 rn 03/24 01:42 Order name: Echo with Doppler [facility] 03/24 01:42 Order name: Echo with Doppler [facility] 03/23 18:00 Order name: EKG; Complete Time: 18:01 [facility] 03/23 18:00 Order name: Accucheck; Complete Time: 20:48 [facility] 03/23 18:00 Order name: Cardiac monitoring; Complete Time: 18:03 [facility] 03/23 18:00 Order name: EKG - Nurse/Tech; Complete Time: 19:33 [facility] 03/23 18:00 Order name: IV Saline Lock - Large Bore; Complete Time: 19:33 [facility] 03/23 18:00 Order name: Labs collected and sent; Complete Time: 19:33 [facility] 03/23 18:00 Order name: O2 Per Protocol; Complete Time: 18:03 [facility] 03/23 18:00 Order name: O2 Sat Monitoring; Complete Time: 18:03 [facility] 03/23 18:00 Order name: Vital Signs; Complete Time: 18:08 [facility] EC/31 19:03 Rate is 78 beats/min. Rhythm is regular. QRS [place] is Normal. [place] interval is normal at dr5 228 msec. QRS interval is normal at 104 msec. QT interval is normal at 404 msec. Administered Medications: 18:58 CANCELLED (Inappropriate at this time): ns 0.9% 2000 ml IV at 1000 ml once; to be given dr5 as a bolus over 60 minutes 19:22 Drug: NS 0.9% IV 500 ml IV at per protocol once; to be given as a bolus over 30 minutes kj2 Route: IV; Rate: per protocol; Site: left antecubital; 21:37 Follow up: IV Status: Completed infusion; IV Intake: 500ml kj2 19:32 Drug: morphine IVP or IV 4 mg IVP once over 4 mins Route: IVP; Infused Over: 4 mins; kj2 Site: left antecubital; 20:48 Follow up: Response: No adverse reaction kj2 19:32 Drug: Ondansetron IVP 4 mg IVP once; over 2 minutes Route: IVP; Site: left antecubital; kj2 20:48 Follow up: Response: No adverse reaction kj2 19:32 Drug: Ibuprofen PO 800 mg PO once Route: PO; kj2 20:47 Follow up: Response: No adverse reaction kj2 19:32 Drug: Acetaminophen PO 1000 mg PO once Route: PO; kj2 20:47 Follow up: Response: No adverse reaction kj2 03/24 01:04 Drug: Rocephin IV 1 grams IV at per protocol once; Given slow IV push per pharmacy tb4 instructions Route: IV; Rate: per protocol; Site: left antecubital; 01:10 Follow up: Response: No adverse reaction; IV Status: Completed infusion tb4 Disposition Summary: 03/24/25 00:41 Hospitalization Ordered Notes: Hospitalization Status: Inpatient Admission dr5 Provider: Irwin Ledezma dr5 Location: Telemetry/MedSurg (observation) dr5 Condition: Stable dr5 Problem: new dr5 Symptoms: are unchanged dr5 Bed/Room Type: Standard dr5 Room Assignment: 213(03/24/25 01:43) vk Diagnosis - Chest pain, unspecified dr5 - UTI/ Urinary tract infection, site not specified dr5 Forms: - Medication Reconciliation Form dr5 - SBAR form dr5 - Leadership Thank You Letter dr5 Signatures: Dispatcher [employer] EDMS Hannah Finley RN RN ap3 Catia Meza Krystal RN RN kj2 Josef Vidal, MEDICAL TECHNOLOGIST CLINICAL-C MEDICAL TECHNOLOGIST CLINICAL-Cdr5 Rosemary Paula RN RN tb4 Corrections: (The following items were deleted from the chart) 03/23 18:01 18:01 PROBNP+C.LAB.BRZ ordered. EDMS EDMS 18:01 18:01 BLOOD CULTURE*+BA.LAB.BRZ ordered. EDMS EDMS 18:01 18:01 CBC+H.LAB.BRZ ordered. EDMS EDMS 18:01 18:01 COMPREHENSIVE METABOLIC PANEL+C.LAB.BRZ ordered. EDMS EDMS 18:01 18:01 LACTATE+C.LAB.BRZ ordered. EDMS EDMS 18:01 18:01 PROTIME (+INR)+COAG.LAB.BRZ ordered. EDMS EDMS 18:01 18:01 PTT, ACTIVATED+COAG.LAB.BRZ ordered. EDMS EDMS 18:01 18:01 Troponin High Sensitivity+C.LAB.BRZ ordered. EDMS EDMS 18:01 18:01 UA Rfx Luigi Cult if indicated+U.LAB.BRZ ordered. EDMS EDMS 18:01 18:01 COVID-19 Ag + Flu A+B Ag+I.LAB.BRZ ordered. EDMS EDMS 18:58 18:00 NS 0.9% IV 2000 ml IV at 1000 ml once; to be given as a bolus over 60 minutes dr5 ordered. dr5 03/24 01:43 00:41 dr5 vk
[2025-03-24] MEDS ORDERED: ONDANSETRON 4 MG/2 ML VIAL IV PRN (01:41)
--- NOTE | 2025-03-24 01:46 | P.HP ---
Certification for Inpatient Patient admitted to: Inpatient With expected LOS: <2 Midnights Patient will require the following post-hospital care: None Practitioner: I am a practitioner with admitting privileges, knowledge of patient current condition, hospital course, and medical plan of care. Services: Services provided to patient in accordance with Admission requirements found in Title 42 Section 412.3 of the Code of Federal Regulations Patient History Date of Service: 03/24/25 Reason for admission: UTI, new onset CHF, generalized body weakness History of Present Illness: Patient is a 74-year-old female with past medical history of atrial fibrillation currently on sotalol 80 mg p.o. twice daily, and Eliquis 5 mg p.o. twice daily, hypothyroidism, essential hypertension, pancreatitis, who reports to ER today complaining of worsening generalized body weakness, and fatigue. Patient states she started getting weaker yesterday, states today her body weakness became more profound, states " it took me about 10 attempts today to get out of my chair", states it then prompted her to report to the ER. Patient states for the past couple of days she has felt really bad. Patient states she occasionally has shortness of breath, with intermittent mild chest pain, states she has been having some edema bilateral lower extremities, but denies of any prior history of CHF. On admission assessment, patient denies of shortness of breath at this time, denies of chest pain, lungs clear bilateral with no adventitious breath sounds, mild bilateral lower extremities edema, no JVD. Patient current workup positive for UTI, and new onset CHF. Patient was afebrile in ER 102.3 Fahrenheit. Patient had total abnormal hepatic enzymes with no associated a bdominal pain. History of postop cholecystectomy. Course in ER: (1) Chest x-ray. Impression-mild CHF versus volume overload pattern is suspected. (2) abdominal ultrasound impression: Unremarkable exam. (3) CT abdomen pelvis with IV contrast. Impression: (1) No definite acute inflammatory process. (2) abdominal aortic aneurysm measuring 3.4 cm. Recommend follow-up pelvic ultrasound in 3 years.. (3) left ovarian simple appearing cyst measuring 4.5 cm. Recommend follow-up pelvic ultrasound in 6 to 12 months. Allergies meperidine [From Demerol] Adverse Reaction (Verified 09/21/18 05:34) vomiting Home Medications: Levothyroxine [Synthroid*] 0.125 mcg PO DAILY 02/05/18 Apixaban [Eliquis] 5 mg PO BID #60 tablet 02/08/18 Meloxicam 15 mg PO DAILY PRN 09/21/18 Amlodipine Besylate 5 mg PO DAILY 03/24/25 Hydroxychloroquine Sulfate 200 mg PO BID 03/24/25 Sotalol HCl [Sotalol] 80 mg PO BID 03/24/25 - Past Medical/Surgical History Diabetic: No -: pancreatitis -: hypothyroidism -: back pain -: atrial fib -: arthritis -: right hip surgery -: Cholecystectomy -: hepaticojejunal anastomosis -: partial thyroidectomy -: hysterectomy Psychosocial/ Personal History: Lives at home with her . Has children. 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 moist/pink, Sclerae nonicteric Neck: Supple, 2+ carotid pulse no bruit, No LAD, Without JVD or thyroid abnormality Respiratory: Clear to auscultation bilaterally, Normal air movement Cardiovascular: No gallops, No rubs, No murmurs, Edema (Mild edema bilateral lo wer extremities.), Irregular heart rate/rhythm (History of atrial fibrillation.) Gastrointestinal: Normal bowel sounds, Soft and benign, No ascites, No tenderness, No masses, No rebound, No guarding Musculoskeletal: No clubbing, No contractures, No erythema, No tenderness, No warmth Integumentary: No rashes, No breakdown, No significant lesion, No tenderness/swelling, No erythema, No cyanosis Neurological: Normal speech, Normal strength at 5/5 x4 extr, Normal tone, Sensation intact, Cranial nerves 3-12 intact, Normal reflexes 2+, Normal affect Lymphatics: No axilla or inguinal lymphadenopathy - Studies Laboratory Data (last 24 hrs) 03/23/25 03/23/25 03/23/25 18:50 18:50 18:00 WBC 8.80 Hgb 12.6 Hct 37.3 Plt Count 192 PT 20.1 H INR 1.81 APTT 31.6 Sodium 131 L Potassium 3.5 BUN 12 Creatinine 0.91 Glucose 118 H Total Bilirubin 1.1 H AST 59 H ALT 57 H Alkaline Phosphatase 166 H Female Exam - Breasts Breasts: Normal configuration Assessment and Plan Discharge Plan: Home Plan to discharge in: Greater than 2 days - Advance Directives Does patient have a Living Will: No Does patient have a Durable POA for Healthcare: No - Code Status/Comfort Care Code Status Assessed: Yes Code Status: Full Code Physician Review Additional Text: Patient is a pleasant 74-year-old female admitted to inpatient with diagnosis of UTI, new onset CHF, with generalized body weakness. Patient denies having associated chest pain at this time, or shortness of breath. Patient endorses some intermittent chest pain at home, troponin negative EKG with no ST abnormalities. (1) UTI. - Rocephin 1 g IV daily. Patient was afebrile in ER at 102.3 Fahrenheit. (2)New onset CHF. Patient chest x-ray impression-mild CHF versus volume overload. -Lasix 40 mg IV daily. -Order echocardiogram. -Strict VLAD. -Consult fancy wire drawer. -Daily weight and on admission. (3)Generalized body weakness. -Physical therapy consult. (4)Chronic atrial fibrillation. Rate controlled at this time. -Continue home medication Eliquis 5 mg p.o. twice daily. -Continue home medications sotalol 80 mg p.o. twice daily. (5)Chronic hypothyroidism. -Continue home medication levothyroxine 125 mcg p.o. daily. (6)Explained the entire treatment plan to the patient, solicit questions answered and voiced understanding. Critical Care: No Time Spent Managing Pts Care (In Minutes): 55
[2025-03-24 03:09] VITALS: O2SAT 100
[2025-03-24 03:35] VITALS: BMI 51.5
[2025-03-24] MEDS: SOTALOL HCL 80 MG TAB PO SCH (06:00)
--- NOTE | 2025-03-24 06:52 | RAD REPORT ---
CLINICAL HISTORY: Abdominal pain. COMPARISON: CT Abdomen Pelvis 02/05/2018. TECHNIQUE: CT ABDOMEN PELVIS WITH IV CONTRAST on 03/23/2025 10:03 PM CDT This exam was performed according to our departmental dose-optimization program, which includes autom ated exposure control, adjustment of the mA and/or kV according to patient size and/or use of iterative reconstruction technique. FINDINGS: Lower lungs are clear. Abdomen: Liver is nodular in contour. There is no biliary dilatation. Cholecystectomy was performed. Moderate pneumobilia. The pancreas and spleen are normal in appearance. The adrenal glands and kidneys are unremarkable. Abdominal aorta is heavily calcified measuring up to 3.4 cm. There is no free air. There is no retrop eritoneal adenopathy. Pelvis: There is mild to moderate diverticulosis of the distal colon. Urinary bladder is unremarkable . There is no free fluid. Left ovarian cyst measures 4.5 cm. Appendix is not clearly seen. There are multiple small supraumbilical fat-containing ventral hernias. Skeleton: There are no acute osseous findings. No suspicious bony lesions. Bilateral hip arthroplasty changes are present. IMPRESSION: No definite acute inflammatory process. Abdominal aortic aneurysm measuring 3.4 cm. Recommend surveillance ultrasound in 3 years. Reference: Journal of Vascular Surgery 67.1 (2018): 2-77. J Am Hayde Radiol 2013;10:789-794. Left ovarian simple-appearing cyst measuring 4.5 cm. Recommend follow-up pelvic ultrasound in 6-12 mo nths. Reference: JACR 2019;17(2):248-254 Electronically signed by: Kendall Fragoso MD 03/24/2025 12:31 AM CDT Due to temporary technical issues with the PACS/[employer] reporting system, reports are being anastacia d by the in-house radiologist without review as a courtesy to ensure prompt reporting the interpreting radiologist is fully responsible for the content of the report. Transcribed Date/Time: 03/24/2025 6:51 AM
[2025-03-24] MEDS: APIXABAN 5 MG TABLET PO SCH (06:56)
[2025-03-24] MEDS: LEVOTHYROXINE SOD 0.125 MG TAB PO SCH (06:56)
[2025-03-24] MEDS: AMLODIPINE 5 MG TAB PO SCH (06:56)
[2025-03-24] MEDS: SOTALOL HCL 80 MG TAB PO ONE (06:57)
--- NOTE | 2025-03-24 07:20 | P.PN ---
Date of Service: 03/24/25 Subjective: feeling better today initially came to ER because initial presentation of symptoms similar to when she went into a-fib in the past denies urinary symptoms. doesn't think shes ever gotten a UTI before 103 fever overnight BP low in 90s systolic Physical Exam: GEN: Alert, oriented, NAD CV: Regular rate and rhythm, trace lower extremity edema Pulm: Nonlabored respirations on room air, clear bilaterally ABD: soft, nontender, nondistended Neuro: Normal speech, normal affect Problem List: Fever, unknown origin Possible UTI Acute pulmonary edema; concern for new onset CHF Elevated LFTs Hyponatremia Abdominal aortic aneurysm 3.4cm, incidental finding Hypertension Hypothyroidism Hx of a-fib s/p ablation (2018 and 2020) Hx of Fibromyalgia Hx of Pancreatitis Hx of Obstructive sleep apnea Fever, unknown origin Possible UTI on admission, presents with worsening weakness, fatigue associated with nausea/vomiting for 2-3 days. Denies urinary symptoms. 102.9 fever on ER arrival, BP low-normal. 94% on RA. CT Abd/pelvis (03/23): no definite acute process. Abdominal aortic aneurysm measuring 3.4 cm. Left ovarian simple-appearing cyst measuring 4.5 cm Also noted moderate pneumobilia, multiple small supraumbilical fat-containing ventral hernias Abdominal u/s was unremarkable. UA concerning for possible UTI; follow urine and blood cultures Continue Empiric Rocephin (03/24-) Flu/COVID negative PT eval Acute pulmonary edema; concern for new onset CHF Patient also endorses intermittent SOB associated with lower extremity edema at home recently Currently denies chest pain. No prior diagnosis of CHF CXR with mild CHF vs volume overload does not appear overloaded Troponins negative x2 Cardio consult Echo ordered to eval EF / stenosis DC lasix given low BP Elevated LFTs unclear etiology Continue to monitor. Daily labs Hyponatremia Monitor and replete electrolytes as needed Abdominal aortic aneurysm 3.4cm, incidental finding repeat imaging in 3 years to re-assess Hypertension DC antihypertensives given low BP Monitor BP closely Hypothyroidism Hx of a-fib s/p ablation (2018 and 2020) Hx of Fibromyalgia Hx of Pancreatitis Hx of Obstructive sleep apnea confirm home meds, restart as appropriate resume home sotalol, Eliquis, Synthroid VTE: home eliquis Code: Full Dispo: Home pending further work up, cultures, afebrile > 24 hours Time Spent Managing Pts Care (In Minutes): 45
[2025-03-24 07:23] LABS: Absolute Lymphocytes (CBC) 0.4 K/uL (0.7-4.9); Hematocrit 37.5 % (36.0-45.0); Hemoglobin 12.7 g/dL (12.0-15.0); MCH 30.4 pg (27.0-35.0); MCHC 34.0 g/dL (32.0-36.0); MCV 89.5 fL (80-100); MPV 8.3 fL (7.6-11.3); Nucleated RBC Absolute Count 0.0 (0-0); Nucleated Red Blood Cells % 0.0 % (0-0); RBC Red Blood Cell Count 4.18 M/uL (3.86-4.86); White Blood Count 9.70 thou/uL (4.3-10.9)
[2025-03-24 07:40] LABS: ALT/SGPT 52.0 U/L (13-56); AST/SGOT 44.0 U/L (15-37); Albumin 2.6 g/dL (3.4-5.0); Albumin/Globulin Ratio 0.7 (1.1-1.8); Alkaline Phosphatase 180.0 U/L (45-117); Anion Gap 10.2 mEq/L (5.0-15.0); BUN Blood Urea Nitrogen 14.0 mg/dL (7-18); Globulin 3.8 g/dL (2.3-3.5); Glucose Level 105.0 mg/dL (74-106); Magnesium 2.2 mg/dL (1.6-2.4); Potassium 3.2 mEq/L (3.5-5.1)
[2025-03-24] MEDS: POTASSIUM CL SA 10 MEQ TAB PO ONE (08:51)
[2025-03-24] MEDS ORDERED: AMLODIPINE 5 MG TAB PO SCH (09:00)
[2025-03-24] MEDS ORDERED: APIXABAN 5 MG TABLET PO SCH (09:00)
[2025-03-24] MEDS ORDERED: FUROSEMIDE 40 MG/4 ML VIAL IV SCH (09:00)
--- NOTE | 2025-03-24 13:18 | CON ---
Date of Consultation: 03/24/2025 Reason For Consultation: Congestive heart failure. History Of Present Illness: 74-year-old female, history of atrial fibrillation, on sotalol and Eliqu is and history of hypertension, hypothyroidism, presented with generalized weakness and difficulty ma naging her daily living activities and she had mild shortness of breath with some orthopnea. Denies having any active chest pain. When I saw her, she was lying flat. No edema. No other symptoms. Past Medical History: As outlined above in the HPI. Medications: Refer to reconciliation sheet for detailed list. Allergies: MEPERIDINE. Family History: No premature coronary artery disease, but father with lung cancer. Social History: She does not smoke or drink. Does not use any drugs. Review of Systems: All systems reviewed and they were negative except as mentioned in the HPI. Physical Examination: Vital Signs: Reviewed. Head and Neck: Pupils are equal, reactive to light. Intact eye movements. No JVD. No cervical lym phadenopathy. Neck is supple. Thyroid is not enlarged. Lungs: Clear to auscultation bilaterally. No rhonchi, wheezing, or crackles. No accessory muscle u se. Heart: Regular rate and rhythm. No extra sounds. Abdomen: Soft, nontender. Bowel sounds positive. No organomegaly. No masses or hernia. No rigidi ty or rebound. Extremities: No clubbing or cyanosis. No edema. Neuro: Alert, awake, oriented x3. No acute focal deficits appreciated. Investigations: NT-proBNP is 289. Troponins are negative. BUN 14, creatinine 0.84, and hemoglobin is 12.7. Assessment And Recommendations: 1. Shortness of breath, could be in part due to heart failure. However, I do not see signs of conges tive heart failure on her. Obtain an echo and plan accordingly. 2. Atrial fibrillation, controlled with sotalol and Eliquis. To continue current therapy. Monitor Q Tc interval on EKG. 3. Urinary tract infection, on antibiotics. SR/MODL Voice ID: [id number] Report ID: [id number]
[2025-03-24] MEDS: HYDROXYCHLOROQUINE 200MG TAB PO SCH (13:25)
[2025-03-24] MEDS: VALACYCLOVIR 500 MG TAB PO SCH (13:25)
[2025-03-24] MEDS: CEFTRIAXONE 1,000 MG in NA CHLORIDE 0.9% 50 ML IVPB SCH (20:18)
[2025-03-24] MEDS: ACETAMINOPHEN 325 MG TABLET PO PRN (22:00)
[2025-03-25 04:28] VITALS: TEMP 97.9
[2025-03-25 07:09] LABS: Absolute Lymphocytes (CBC) 1.3 K/uL (0.7-4.9); Hematocrit 35.9 % (36.0-45.0); Hemoglobin 12.1 g/dL (12.0-15.0); MCH 30.3 pg (27.0-35.0); MCHC 33.8 g/dL (32.0-36.0); MCV 89.7 fL (80-100); MPV 9.0 fL (7.6-11.3); Nucleated RBC Absolute Count 0.0 (0-0); Nucleated Red Blood Cells % 0.1 % (0-0); RBC Red Blood Cell Count 4.01 M/uL (3.86-4.86); White Blood Count 6.70 thou/uL (4.3-10.9)
[2025-03-25 07:33] LABS: ALT/SGPT 52.0 U/L (13-56); AST/SGOT 38.0 U/L (15-37); Albumin 2.4 g/dL (3.4-5.0); Albumin/Globulin Ratio 0.6 (1.1-1.8); Alkaline Phosphatase 194.0 U/L (45-117); Anion Gap 10.6 mEq/L (5.0-15.0); BUN Blood Urea Nitrogen 14.0 mg/dL (7-18); Globulin 4.0 g/dL (2.3-3.5); Glucose Level 106.0 mg/dL (74-106); Magnesium 2.7 mg/dL (1.6-2.4); Potassium 3.6 mEq/L (3.5-5.1)
[2025-03-25 09:03] VITALS: BP 98/60
--- NOTE | 2025-03-25 09:36 | P.DS ---
Admission Date: 03/24/25 Discharge Date: 03/25/25 Disposition: ROUTINE DISCHARGE Reason for Admission: UTI, new onset CHF, generalized body weakness Consultations: Cardiology - Dr. Cuevas Brief History of Present Illness: 74yo F, PMH: atrial fibrillation currently on sotalol 80 mg p.o. twice daily, and Eliquis 5 mg p.o. twice daily, hypothyroidism, essential hypertension, pancreatitis, Patient reports to ER today complaining of worsening generalized body weakness, and fatigue. Patient states she started getting weaker yesterday, states today her body weakness became more profound, states " it took me about 10 attempts today to get out of my chair", states it then prompted her to report to the ER. Patient states for the past couple of days she has felt really bad. Patient states she occasionally has shortness of breath, with intermittent mild chest pain, states she has been having some edema bilateral lower extremities, but denies of any prior history of CHF. On admission assessment, patient denies of shortness of breath at this time, denies of chest pain, lungs clear bilateral with no adventitious breath sounds, mild bilateral lower extremities edema, no JVD. Patient current workup positive for UTI, and new onset CHF. Patient was afebrile in ER 102.3 Fahrenheit. Patient had total abnormal hepatic enzymes with no associated abdominal pain. History of postop cholecystectomy. Course in ER: (1) Chest x-ray. Impression-mild CHF versus volume overload pattern is suspected. (2) abdominal ultrasound impression: Unremarkable exam. (3) CT abdomen pelvis with IV contrast. Impression: (1) No definite acute inflammatory process. (2) abdominal aortic aneurysm measuring 3.4 cm. Recommend follow-up pelvic ultrasound in 3 years.. (3) left ovarian simple appearing cyst measuring 4.5 cm. Recommend follow-up pelvic ultrasound in 6 to 12 months. Hospital Course: Problem List: Fever secondary to suspected UTI New onset Diastolic CHF Elevated LFTs, improved Hyponatremia, improved Abdominal aortic aneurysm 3.4cm, incidental finding Hypertension Hypothyroidism Hx of a-fib s/p ablation (2018 and 2020) Hx of Fibromyalgia Hx of Pancreatitis Hx of Obstructive sleep apnea Physician discharge instructions: Patient presented with worsening weakness, fatigue associated with nausea/vomiting for 2-3 days secondary to suspected UTI. She was noted to have a 102.9 fever on arrival associated with low-normal blood pressure. CT abdomen was negative for any definite acute process. Patient was started on empiric Rocephin on admission given her abnormal urinalysis concerning for UTI. Her symptoms improved after starting antibiotics. She felt much better and wanted to go home. Blood cultures have been without growth since 03/23. Urine culture remains pending / no result yet. Given her quick improvement, it is reasonable to discharge home today. Patient received 2 days of IV Rocephin while hospitalized and is to complete 5 more days of Cefpodoxime on discharge. Discussed with patient if symptoms return or worsen to consider returning to ER. I will follow urine culture after discharge and adjust antibiotics accordingly if necessary. Patient was feeling better, nausea resolved, afebrile > 24 hours, and was deemed stable for discharge. On admission patient also reported some mild shortness of breath associated with trace edema. Chest xray on admission was concerning for mild CHF vs volume overload pattern. Patient denied any prior history of CHF. Cardiology was consulted and recommended echo to further evaluate. Echo showed 55-60% EF, grade 2 diastolic dysfunction, mild mitral and tricuspid regurgitation, dilated left atrium. No evidence to warrant further work up. Recommend taking lasix only as needed for worsening lower extremity edema. Check weight around the same time each day. Keep daily log of weight readings to take to follow up appointments. If you notice a weight gain of 2lbs or more within 24 hours, take lasix. Recommend routine follow up with construction administrative assistant in next few weeks for further management. Stop amlodipine for now. Check blood pressure around the same time each day. Keep daily log of blood pressure readings to take to follow up appointments for further adjustments of medications. Okay to restart amlodipine once blood pressure is consistently > 140 systolic for 2 consecutive days. CTA done this hospitalization showed abdominal aortic aneurysm measuring 3.4 cm. Recommend surveillance ultrasound in 3 years. CTA also incidentally noted Left ovarian simple-appearing cyst measuring 4.5 cm. Radiologist recommended follow-up pelvic ultrasound in 6-12 months. Medications: Cefpodoxime x5 days Stop amlodipine for now as noted above Take Lasix as needed for lower extremity edema / shortness of breath / if 2+ lb weight gailn with symptoms Follow up: PCP 3-5 days Cardiology in few weeks Please call to schedule / confirm appointments Physical Exam: GEN: Alert, oriented, NAD CV: Regular rate and rhythm, no edema Pulm: Nonlabored respirations on room air, clear bilaterally ABD: soft, nontender, nondistended Neuro: Normal speech, normal affect Vital Signs/Physical Exam: Temp Pulse Resp BP Pulse Ox 97.9 F 62 17 98/60 92 03/25/25 08:00 03/25/25 08:00 03/25/25 08:00 03/25/25 08:00 03/25/25 08:00 Laboratory Data at Discharge: WBC 6.70 thou/uL (4.3-10.9) 03/25/25 06:38 Hgb 12.1 g/dL (12.0-15.0) 03/25/25 06:38 Hct 35.9 % (36.0-45.0) L 03/25/25 06:38 Plt Count 189 thou/uL (152-406) 03/25/25 06:38 PT 20.1 SECONDS (10-13.0) H 03/23/25 18:50 INR 1.81 03/23/25 18:50 APTT 31.6 SECONDS (27.2-37.4) 03/23/25 18:50 Sodium 137 mEq/L (136-145) 03/25/25 06:38 Potassium 3.6 mEq/L (3.5-5.1) 03/25/25 06:38 BUN 14 mg/dL (7-18) 03/25/25 06:38 Creatinine 0.57 mg/dL (0.55-1.02) 03/25/25 06:38 Glucose 106 mg/dL (74-106) 03/25/25 06:38 Magnesium 2.7 mg/dL (1.6-2.4) H 03/25/25 06:38 Total Bilirubin 0.4 mg/dL (0.2-1.0) 03/25/25 06:38 AST 38 U/L (15-37) H 03/25/25 06:38 ALT 52 U/L (13-56) 03/25/25 06:38 Alkaline Phosphatase 194 U/L (45-117) H 03/25/25 06:38 Home Medications: RX: Levothyroxine [Synthroid*] 0.125 mcg PO DAILY 02/05/18 RX: Apixaban [Eliquis *] 5 mg PO BID #60 tablet 02/08/18 RX: Meloxicam 15 mg PO DAILY PRN 09/21/18 RX: Hydroxychloroquine Sulfate 200 mg PO BID 03/24/25 RX: Sotalol HCl [Sotalol] 80 mg PO BID 03/24/25 Furosemide [Lasix] 20 mg PO DAILY PRN 30 Days #30 tab 03/25/25 RX: Cefpodoxime Proxetil 100 mg PO BID 5 Days #10 tab 03/25/25 New Medications: RX: Cefpodoxime Proxetil 100 mg PO BID 5 Days #10 tab Furosemide [Lasix] 20 mg PO DAILY PRN 30 Days #30 tab PRN Reason: Shortness Of Breath Physician Discharge Instructions: Physician discharge instructions: Patient presented with worsening weakness, fatigue associated with nausea/vomiting for 2-3 days secondary to suspected UTI. She was noted to have a 102.9 fever on arrival associated with low-normal blood pressure. CT abdomen was negative for any definite acute process. Patient was started on empiric Rocephin on admission given her abnormal urinalysis concerning for UTI. Her symptoms improved after starting antibiotics. She felt much better and wanted to go home. Blood cultures have been without growth since 03/23. Urine culture remains pending / no result yet. Given her quick improvement, it is reasonable to discharge home today. Patient received 2 days of IV Rocephin while hospitalized and is to complete 5 more days of Cefpodoxime on discharge. Discussed with patient if symptoms return or worsen to consider returning to ER. I will follow urine culture after discharge and adjust antibiotics accordingly if necessary. Patient was feeling better, nausea resolved, afebrile > 24 hours, and was deemed stable for discharge. On admission patient also reported some mild shortness of breath associated with trace edema. Chest xray on admission was concerning for mild CHF vs volume overload pattern. Patient denied any prior history of CHF. Cardiology was consulted and recommended echo to further evaluate. Echo showed 55-60% EF, grade 2 diastolic dysfunction, mild mitral and tricuspid regurgitation, dilated left atrium. No evidence to warrant further work up. Recommend taking lasix only as needed for worsening lower extremity edema. Check weight around the same time each day. Keep daily log of weight readings to take to follow up appointments. If you notice a weight gain of 2lbs or more within 24 hours, take lasix. Recommend routine follow up with construction administrative assistant in next few weeks for further management. Stop amlodipine for now. Check blood pressure around the same time each day. Keep daily log of blood pressure readings to take to follow up appointments for further adjustments of medications. Okay to restart amlodipine once blood pressure is consistently > 140 systolic for 2 consecutive days. CTA done this hospitalization showed abdominal aortic aneurysm measuring 3.4 cm. Recommend surveillance ultrasound in 3 years. CTA also incidentally noted Left ovarian simple-appearing cyst measuring 4.5 cm. Radiologist recommended follow-up pelvic ultrasound in 6-12 months. Medications: Cefpodoxime Stop amlodipine for now as noted above Take Lasix as needed for lower extremity edema / shortness of breath / if 2+ lb weight gailn with symptoms Follow up: PCP 3-5 days Cardiology in few weeks Please call to schedule / confirm appointments Followup: Brent Henderson FNP [Primary Care Provider] - Time spent managing pt's care (in minutes): 45
--- NOTE | 2025-03-27 07:48 | ECHO ---
HEIGHT: 5 ft 6 in WEIGHT: 319 lb 0 oz DATE OF STUDY: 03/24/[address]: Eran Cuevas 2-DIMENSIONAL: YES M.MODE: YES DOPPLER: YES COLOR FLOW: YES TDS: NO PORTABLE: YES DEFINITY: NO BUBBLE STUDY: NO DIAGNOSIS: CONGESTIVE HEART FAILURE CARDIAC HISTORY: CATHERIZATION: SURGERY: PROSTHETIC VALVE: PACEMAKER: MEASUREMENTS (cm) DIASTOLIC (NORMALS) SYSTOLIC (NORMALS) IVSd 1.1 (0.6-1.2) LA Diam 5.2 (1.9-4.0) LVEF 55-60% LVIDd 5.2 (3.5-5.7) LVIDs 2.9 (2.0-3.5) %FS 43% LVPWd 1.2 (0.6-1.2) Ao Diam 3.2 (2.0-3.7) 2 DIMENSIONAL ASSESSMENT: RIGHT ATRIUM: NORMAL LEFT ATRIUM: ENLARGED RIGHT VENTRICLE: NORMAL LEFT VENTRICLE: NORMAL TRICUSPID VALVE: MILD TRICUSPID REGURGITATION MITRAL VALVE: MILD MITRAL REGURGITATION PULMONIC VALVE: NORMAL AORTIC VALVE: NORMAL PERICARDIAL EFFUSION: NONE AORTIC ROOT: NORMAL LEFT VENTRICULAR WALL MOTION: NORMAL. DOPPLER/COLOR FLOW: SEE BELOW. COMMENTS: 1. NORMAL LEFT VENTRICULAR EJECTION FRACTION 55-60% WITH NORMAL WALL MOTION. 2. GRADE II DIASTOLIC DYSFUNCTION. 3. LEFT ATRIAL ENLARGEMENT (SEVERE). 4. MILD MITRAL/TRICUSPID REGURGITATION. TECHNOLOGIST: PHILIP GARCIA
== END 2025-03-25 10:29 | disposition home or self-care (01) | DRG 690 ==
LOC: ER 17:53 → 2ND 03-24 01:30
PROVIDERS: ADMIT Hospitalist; ATTEND Hospitalist
DX: N39.0 Urinary tract infection, site not specified (principal); I50.30 Unspecified diastolic (congestive) heart failure; K86.1 Other chronic pancreatitis; I48.20 Chronic atrial fibrillation, unspecified; E87.1 Hypo-osmolality and hyponatremia; I11.0 Hypertensive heart disease with heart failure; Z79.890 Hormone replacement therapy; Z79.01 Long term (current) use of anticoagulants; Z79.899 Other long term (current) drug therapy; E03.9 Hypothyroidism, unspecified; Z90.49 Acquired absence of other specified parts of digestive tract; Z56.9 Unspecified problems related to employment; Z59.9 Problem related to housing and economic circumstances, unspecified; Z59.82 Transportation insecurity; Z59.71 Insufficient health insurance coverage; Z11.52 Encounter for screening for COVID-19; I71.40 Abdominal aortic aneurysm, without rupture, unspecified; Z98.890 Other specified postprocedural states; G47.33 Obstructive sleep apnea (adult) (pediatric); N83.202 Unspecified ovarian cyst, left side; I08.1 Rheumatic disorders of both mitral and tricuspid valves
CPT/HCPCS: 36415; 71045; 74177; 76705; 80053; 81001; 83605; 83735; 83880; 84484; 85025; 85610; 85730; 87040; 87077; 87086; 87088; 87186; 87428; 93005; 93306; 96361; 96374; 96375; 97116; 97161; 99285; J0696; J2405; J7040; Q9967